=== PATIENT | female | born 1960 | race Caucasian/White ===

== ENCOUNTER → 2016-10-27 | Outpatient (CLI) | payer BC ==
[~2016-10-27] MED LIST: BNC/40 PO; LEVO75TA PO; RIZA10TA18 PO
--- NOTE | 2016-10-27 15:02 | MAMMOGRAPHY REPORT ---
BILATERAL DIGITAL SCREENING MAMMOGRAM TOMOSYNTHESIS WITH CAD: 10/27/2016 TECHNIQUE: Breast tomosynthesis in addition to standard 2D mammography was performed. Current study was also evaluated with a Computer Aided Detection (CAD) system. COMPARISON: Comparison is made to exams dated: 10/22/2015 mammogram, 08/14/2013 mammogram, 03/06/2013 m ammogram, 09/06/2014 mammogram, and 07/25/2012 mammogram - [facility]. BREAST COMPOSITION: The tissue of both breasts is heterogeneously dense, which may obscure small ma sses. FINDINGS: No suspicious masses, calcifications, or areas of architectural distortion are noted in e ither breast. There has been no significant interval change compared to prior exams. A linear scar marker denotes a scar on the left upper outer breast. There are grouped calcifications seen within the right upper outer quadrant, which demonstrate layering within a round circumscribed 4 mm mass on the MLO view, and are consistent with benign calcifications layering within a cyst. IMPRESSION: ACR BI-RADS CATEGORY 2: BENIGN There is no mammographic evidence of malignancy. A 1 year screening mammogram is recommended. The p atient will receive written notification of the results. Approximately 10% of breast cancers are not detected with mammography. A negative mammographic repor t should not delay biopsy if a clinically suggestive mass is present. Luz Cyr M.D. ah/:10/27/2016 14:17:44 Machine Molder: Palak HUANG)(Melchor), [facility] letter sent: Normal 1/2 BI-RADS Code: ACR BI-RADS Category 2: Benign
== END | disposition home or self-care (01) ==
LOC: C.MAMM 13:35
PROVIDERS: ATTEND Family Medicine
DX: Z12.31 Encounter for screening mammogram for malignant neoplasm of breast (principal)

== ENCOUNTER 2016-10-31 20:51 | Emergency (ER) | payer BC ==
[~2016-10-31] VITALS: Ht 170.2 cm; Wt 74.4 kg
[2016-10-31 20:55] VITALS: TEMP 37.1; Ht 170.2 cm; Wt 74.4 kg
[2016-10-31] MEDS ORDERED: BNC/40 PO (21:08)
[2016-10-31] MEDS ORDERED: LEVO75TA PO (21:09)
[2016-10-31] MEDS ORDERED: RIZA10TA18 PO (21:11)
[2016-10-31 21:41] LABS: BASO % 0.5 %; BASO ABS # 0.03 K/uL (0-0.2); COMPLETE YES; EOS % 2.1 %; HEMATOCRIT 38.6 % (37-47); IG% 0.2 %; LYMPH % 29.5 %; LYMPH ABS # 1.82 K/uL (1.2-3.4); MEAN CELL VOLUME 84.1 fL (80-100); MEAN CORPUSCULAR HEMOGLOBIN 29.4 pg (25-34); MEAN PLATELET VOLUME 9.7 fL (7.4-10.4); MONO % 5.5 %; NEUT % 62.2 %; PLATELET COUNT 209 K/uL (130-400); RED BLOOD COUNT 4.59 M/uL (4.2-5.4); WHITE BLOOD COUNT 6.16 K/uL (4.8-10.8)
[2016-10-31 21:52] LABS: INR 0.9 (0.9-1.1)
[2016-10-31 21:57] LABS: URINE APPEARANCE CLEAR (CLEAR); URINE BILIRUBIN NEG (NEG); URINE COLOR YELLOW; URINE NITRITE NEG (NEG); URINE PH 5.5 (4.5-7.5); URINE SPECIFIC GRAVITY 1.007 (1.000-1.030); UROBILINOGEN NEG (NEG)
[2016-10-31 21:58] LABS: ALT/SGPT 27 U/L (12-78); BLOOD UREA NITROGEN 16 mg/dl (7-18); BUN/CREATININE RATIO 16.7 (10-20); CALCIUM 9.1 mg/dl (8.5-10.1); CARBON DIOXIDE 29 mmol/L (21-32); CHLORIDE 106 mmol/L (98-107); CREATININE 0.96 mg/dl (0.60-1.20); GLUCOSE 104 mg/dl (70-99); POTASSIUM 3.5 mmol/L (3.5-5.1); SODIUM 143 mmol/L (136-145)
[2016-10-31 22:02] LABS: MANUAL MICROSCOPIC REQUIRED? NO; REVIEW REQ? NO
[2016-10-31 22:08] LABS: ALKALINE PHOSPHATASE 91 U/L (45-117); AST/SGOT 16 U/L (15-37)
--- NOTE | 2016-10-31 22:16 | DIAGNOSTIC IMAGING REPORT ---
CHEST ONE VIEW PORTABLE CLINICAL HISTORY: Severe hypertension. COMPARISON STUDY: Chest radiograph December 20, 2007. FINDINGS: Lung volumes are normal. No consolidation is identified. There is no evidence of pulmonary edema. Cardiomediastinal silhouette is normal. There is no pneumothorax or pleural effusion. IMPRESSION: No acute cardiopulmonary findings. Electronically signed by: Zeus Erwin M.D. 10/31/2016 10:15 PM Dictated Date/Time: 10/31/2016 10:14 PM
[2016-10-31 22:38] VITALS: BP 137/89; PULSE 74; O2SAT 96
--- NOTE | 2016-11-01 00:59 | EMERGENCY ROOM VISIT NOTE ---
History Report prepared by Momo: Nito Thompson Under the Supervision of: Dr. Miguel Bennett M.D. First contact with patient: 21:01 Chief Complaint: HYPERTENSION Stated Complaint: HTN 158/99, ANXIETY, DIZZY History of Present Illness The patient is a 56 year old female who presents to the Emergency Room with concerns over some recent high blood pressure readings that she took at home. The patient has a history of hypertension and was on Benicar. Benicar was discontinued and she was switched to Losartan and HTCZ. She had a reaction to the HTCZ and was then started on Olmesartan. The patient started taking the Olmesartan a couple weeks ago, at 20 mg per day. Yesterday she had her dosage doubled to 40 mg per day. The patient has been monitoring her blood pressure frequently, and admits to feeling anxiety over the readings. She also notes eating cypriot food and drinking Mountain Dew last night and this afternoon. Patient denies LOC, headache, fevers, chills, diaphoresis, visual changes, neck pain, chest pain, breathing difficulties, nausea, vomiting, abdominal pain, back pain, melena, hematochezia, urinary symptoms, numbness, weakness, lymphadenopathy, rash, or other complaints. Source of History: patient Position: other (Cardiovascular) Quality: other (Hypertensive BP) Timing: worsening Associated Symptoms: No SOB, No chest pain Review of Systems See HPI for pertinent positives and negatives. A total of ten systems were reviewed and were otherwise negative. Past Medical & Surgical Medical Problems: (1) Hypertension Surgical Problems: (1) History of cholecystectomy (2) History of partial thyroidectomy Hypertension Family History Cancer Diabetes mellitus Gallbladder disease Hypertension Social History Smoking Status: Never Smoker Drug Use: none Marital Status: Housing Status: lives with significant other Occupation Status: employed Current/Historical Medications Scheduled Levothyroxine Sodium (Synthroid), 75 MCG PO DAILY Olmesartan Medoxomil (Benicar), 40 MG PO DAILY Scheduled PRN Rizatriptan Benzoate (Maxalt), 10 MEQ PO DAILY PRN for Migraine Allergies Coded Allergies: Penicillins (Verified Allergy, Unknown, HIVES, 10/31/16) Hydrochlorothiazide (Unverified Adverse Reaction, Intermediate, itching, ) Lidocaine (Unverified Adverse Reaction, Unknown, drooping eye, 10/31/16) Uncoded Allergies: SULFA (Allergy, Unknown, RASH, 10/27/16) Physical Exam Vital Signs Date Time Temp Pulse Resp B/P Pulse Ox O2 Delivery O2 Flow Rate FiO2 10/31/16 22:38 74 16 137/89 96 Room Air 10/31/16 22:04 71 18 128/85 10/31/16 21:32 79 10/31/16 20:55 37.1 82 18 156/104 98 Room Air Physical Exam GENERAL: Awake, alert, well-appearing, in no distress HENT: Normocephalic, atraumatic. Oropharynx unremarkable. EYES: Normal conjunctiva. Sclera non-icteric. NECK: Supple. No nuchal rigidity. FROM. No JVD. RESPIRATORY: Clear to auscultation. CARDIAC: Regular rate, normal rhythm. Extremities warm and well perfused. Pulses equal. ABDOMEN: Soft, non-distended. No tenderness to palpation. No rebound or guarding. No masses. RECTAL: Deferred. MUSCULOSKELETAL: Chest examination reveals no tenderness. The back is symmetrical on inspection without obvious abnormality. There is no CVA tenderness to palpation. No joint edema. LOWER EXTREMITIES: Calves are equal size bilaterally and non-tender. No edema. No discoloration. NEURO: Normal sensorium. No sensory or motor deficits noted. SKIN: No rash or jaundice noted. Medical Decision & Procedures ER Provider Diagnostic Interpretation: X ray results as stated below per my interpretation and radiologist interpretation. Other radiology results as stated below per my review and radiologist interpretation CHEST ONE VIEW PORTABLE CLINICAL HISTORY: Severe hypertension. COMPARISON STUDY: Chest radiograph December 20, 2007. FINDINGS: Lung volumes are normal. No consolidation is identified. There is no evidence of pulmonary edema. Cardiomediastinal silhouette is normal. There is no pneumothorax or pleural effusion. IMPRESSION: No acute cardiopulmonary findings. Electronically signed by: Zeus Erwin M.D. 10/31/2016 10:15 PM Dictated Date/Time: 10/31/2016 10:14 PM Laboratory Results 10/31/16 21:25 Red Blood Count 4.59, Mean Corpuscular Volume 84.1, Mean Corpuscular Hemoglobin 29.4, Mean Corpuscular Hemoglobin Concent 35.0, Mean Platelet Volume 9.7, Neutrophils (%) (Auto) 62.2, Lymphocytes (%) (Auto) 29.5, Monocytes (%) (Auto) 5.5, Eosinophils (%) (Auto) 2.1, Basophils (%) (Auto) 0.5, Neutrophils # (Auto) 3.83, Lymphocytes # (Auto) 1.82, Monocytes # (Auto) 0.34, Eosinophils # (Auto) 0.13, Basophils # (Auto) 0.03 10/31/16 21:25 Test 10/31/16 21:20 10/31/16 21:25 Urine Color YELLOW Urine Appearance CLEAR (CLEAR) Urine pH 5.5 (4.5-7.5) Urine Specific Chandler 1.007 (1.000-1.030) Urine Protein NEG (NEG) Urine Glucose (UA) NEG (NEG) Urine Ketones NEG (NEG) Urine Occult Blood TRACE (NEG) Urine Nitrite NEG (NEG) Urine Bilirubin NEG (NEG) Urine Urobilinogen NEG (NEG) Urine Leukocyte Esterase NEG (NEG) Urine WBC (Auto) 0 /hpf (0-5) Urine RBC (Auto) 0-4 /hpf (0-4) Urine Hyaline Casts (Auto) 0 /lpf (0-5) Urine Epithelial Cells (Auto) 5-10 /lpf (0-5) Urine Bacteria (Auto) NEG (NEG) White Blood Count 6.16 K/uL (4.8-10.8) Red Blood Count 4.59 M/uL (4.2-5.4) Hemoglobin 13.5 g/dL (12.0-16.0) Hematocrit 38.6 % (37-47) Mean Corpuscular Volume 84.1 fL (80-100) Mean Corpuscular Hemoglobin 29.4 pg (25-34) Mean Corpuscular Hemoglobin Concent 35.0 g/dl (32-36) Platelet Count 209 K/uL (130-400) Mean Platelet Volume 9.7 fL (7.4-10.4) Neutrophils (%) (Auto) 62.2 % Lymphocytes (%) (Auto) 29.5 % Monocytes (%) (Auto) 5.5 % Eosinophils (%) (Auto) 2.1 % Basophils (%) (Auto) 0.5 % Neutrophils # (Auto) 3.83 K/uL (1.4-6.5) Lymphocytes # (Auto) 1.82 K/uL (1.2-3.4) Monocytes # (Auto) 0.34 K/uL (0.11-0.59) Eosinophils # (Auto) 0.13 K/uL (0-0.5) Basophils # (Auto) 0.03 K/uL (0-0.2) RDW Standard Deviation 38.7 fL (36.4-46.3) RDW Coefficient of Variation 12.7 % (11.5-14.5) Immature Granulocyte % (Auto) 0.2 % Immature Granulocyte # (Auto) 0.01 K/uL (0.00-0.02) Prothrombin Time 10.0 SECONDS (9.0-12.0) Prothromb Time International Ratio 0.9 (0.9-1.1) Activated Partial Thromboplast Time 26.3 SECONDS (21.0-31.0) Partial Thromboplastin Ratio 1.0 Anion Gap 8.0 mmol/L (3-11) Est Creatinine Clear Calc Drug Dose 68.1 ml/min Estimated GFR () 76.1 Estimated GFR (Non- 65.7 BUN/Creatinine Ratio 16.7 (10-20) Calcium Level 9.1 mg/dl (8.5-10.1) Total Bilirubin 0.3 mg/dl (0.2-1) Direct Bilirubin < 0.1 mg/dl (0-0.2) Aspartate Amino Transf (AST/SGOT) 16 U/L (15-37) Alanine Aminotransferase (ALT/SGPT) 27 U/L (12-78) Alkaline Phosphatase 91 U/L (45-117) Troponin I < 0.015 ng/ml (0-0.045) Total Protein 6.9 gm/dl (6.4-8.2) Albumin 3.5 gm/dl (3.4-5.0) Lipase 210 U/L (73-393) Thyroid Stimulating Hormone (TSH) 1.360 uIu/ml (0.300-4.500) Laboratory results reviewed by me ECG Indication: other (Hypertension) Rate (beats per minute): 76 Rhythm: normal sinus Findings: no acute ischemic change, no ectopy ED Course 2127: The patient was evaluated in room C4. A complete history and physical exam was performed. 2229: Patient was reassessed. She is asymptomatic. Her blood pressure is improved without intervention. I discussed conservative management and she was in agreement. Medical Decision Prior records/ancillary studies reviewed regarding the history above. Triage Nursing notes reviewed and agree them. Additional history obtained from the The patient's history was concerning for hypertension. Differential diagnosis: Etiologies such as hypertensive urgency, hypertensive emergency, benign hypertension, cardiovascular pathology, pheochromocytoma, electrolyte abnormality, renal disease, endorgan damage, as well as others were entertained. Physical examination: As above. ER treatment provided: No medication given On reassessment the patient felt better. Diagnostic interpretation by me: The electrocardiogram was negative for pathologic change. The labs revealed an unremarkable CBC and chemical panel. Urinalysis unremarkable. TSH and coags unremarkable. Imaging studies: Chest x-ray as above. The patient has mild hypertension. She was asymptomatic. She does note a few meals high in salt. The patient was counseled. She will follow-up closely as an outpatient. No need to change medications at this time. By the evaluation outlined above emergent etiologies such as hypertensive emergency, pheochromocytoma, endorgan damage, cardiac ischemia, aortic dissection, pulmonary embolism, pneumonia, pneumothorax, infections, gastrointestinal, as well as others were deemed relatively unlikely. The patient and were informed about the findings as listed above. All questions were answered and they were pleased with the treatment. Return instructions were outlined and the patient was discharged in stable condition. Referral: The patient was referred back to her primary care physician for follow-up in 2 to 3 days for a recheck of the current condition. The chart was completed utilizing [employer] Speech voice recognition software. Grammatical errors, random word insertions, pronoun errors, and incomplete sentences are an occasional consequence of this system due to software limitations, ambient noise, and hardware issues. Any formal questions or concerns about the content, text, or information contained within the body of this dictation should be directly addressed to the physician for clarification. Impression Primary Impression: Hypertension Scribe Attestation The scribe's documentation has been prepared under my direction and personally reviewed by me in its entirety. I confirm that the note above accurately reflects all work, treatment, procedures, and medical decision making performed by me. Departure Information Referrals Peyton Washington D.O. (PCP) Forms HOME CARE DOCUMENTATION FORM, IMPORTANT VISIT INFORMATION, WORK / SCHOOL INSTRUCTIONS Patient Instructions My [facility] Additional Instructions Follow-up with your primary office this week. Continue current medications. Avoid salty foods. Return to the ER for headache, passing out, difficulty breathing, fevers, numbness, tingling, worsening of your condition, or as needed. Problem Qualifiers Primary Impression: Hypertension Hypertension type: essential hypertension Qualified Codes: I10 - Essential ( primary) hypertension
== END 2016-10-31 22:45 | disposition home or self-care (01) ==
LOC: C.EDB 20:52 → C.EDC 22:45
DX: I10 Essential (primary) hypertension (principal); E89.0 Postprocedural hypothyroidism; Z79.899 Other long term (current) drug therapy; Z90.49 Acquired absence of other specified parts of digestive tract; Z88.0 Allergy status to penicillin; Z88.8 Allergy status to other drugs, medicaments and biological substances; Z80.9 Family history of malignant neoplasm, unspecified; Z83.3 Family history of diabetes mellitus; Z83.79 Family history of other diseases of the digestive system; Z82.49 Family history of ischemic heart disease and other diseases of the circulatory system

== ENCOUNTER → 2017-01-07 | Outpatient (CLI) | payer BC ==
--- NOTE | 2017-01-07 14:32 | DIAGNOSTIC IMAGING REPORT ---
LEFT KNEE RADIOGRAPHS WITH COMPARISON STANDING AP RADIOGRAPH OF THE RIGHT KNEE CLINICAL HISTORY: Left knee pain. COMPARISON: Knee radiographs December 15, 2012. FINDINGS: Comparison standing AP radiograph of the right knee demonstrates preserved joint spaces. Alignment of the left knee is anatomic. No fracture or suspicious lesion is identified. There may be faint chondrocalcinosis. A small left knee joint effusion is present. Joint spaces are preserved. There is mild osteophytosis within the medial and patellofemoral compartments. IMPRESSION: 1. No acute fracture. 2. Small left knee joint effusion. 3. Mild osteophytosis within the medial and patellofemoral compartments with suspected faint chondrocalcinosis. Electronically signed by: Zeus Erwin M.D. 01/07/2017 2:30 PM Dictated Date/Time: 01/07/2017 2:29 PM
== END | disposition home or self-care (01) ==
LOC: C.RDSM 13:47
PROVIDERS: ATTEND Physician Assistant
DX: M25.562 Pain in left knee (principal); M25.462 Effusion, left knee

== ENCOUNTER 2017-09-20 15:35 | Emergency (ER) | payer BC, OTHER ==
[~2017-09-20] VITALS: Ht 170.2 cm; Wt 72.9 kg
[2017-09-20 15:41] VITALS: TEMP 36.7; Ht 170.2 cm; Wt 72.9 kg
--- NOTE | 2017-09-20 16:54 | EMERGENCY ROOM VISIT NOTE ---
ED Visit Note First contact with patient: 16:39 The patient was seen and examined with the resident - Dr. Conner. I agree with the history, physical and findings. Please see the note for disposition and details.
[2017-09-20 17:02] VITALS: O2SAT 98
--- NOTE | 2017-09-20 17:10 | DIAGNOSTIC IMAGING REPORT ---
CHEST ONE VIEW PORTABLE HISTORY: 57 years-old Female CHEST PAIN acute atypical chest pain COMPARISON: Portable chest radiograph 10/31/2016 TECHNIQUE: Portable AP view of the chest FINDINGS: Cardiomediastinal and hilar silhouettes are within normal limits. There is no pneumothorax, pleural effusion, focal airspace consolidation or overt pulmonary edema. The bones of the chest appear grossly intact. IMPRESSION: No acute process. The above report was generated using voice recognition software. It may contain grammatical, syntax or spelling errors. Electronically signed by: Abel Martinez M.D. 09/20/2017 5:08 PM Dictated Date/Time: 09/20/2017 5:07 PM
[2017-09-20 17:11] LABS: BASO % 0.6 %; BASO ABS # 0.04 K/uL (0-0.2); EOS % 1.2 %; EOS ABS # 0.08 K/uL (0-0.5); HEMATOCRIT 39.4 % (37-47); HEMOGLOBIN 13.4 g/dL (12.0-16.0); IG# 0.02 K/uL (0.00-0.02); LYMPH % 24.5 %; MEAN CELL VOLUME 87.2 fL (80-100); MEAN CORPUSCULAR HEMOGLOBIN 29.6 pg (25-34); MEAN PLATELET VOLUME 9.9 fL (7.4-10.4); MONO % 4.7 %; MONO ABS # 0.31 K/uL (0.11-0.59); NEUT % 68.7 %; NEUT ABS # 4.49 K/uL (1.4-6.5); PLATELET COUNT 239 K/uL (130-400); WHITE BLOOD COUNT 6.54 K/uL (4.8-10.8)
[2017-09-20 17:22] LABS: INR 0.9 (0.9-1.1); PTT PATIENT 24.8 SECONDS (21.0-31.0)
--- NOTE | 2017-09-20 17:33 | EMERGENCY ROOM VISIT NOTE ---
History First contact with patient: 16:39 (Marta Conner MD) First contact with patient: 16:39 (Leonidas Arriaga M.D.) Chief Complaint: CHEST PAIN Stated Complaint: PAIN/CHEST PAIN LEFT SIDE Nursing Triage Summary: Patient ambulatory to triage with an upright and steady gait, states "On Tuesday , I started having pain under my left breast. It comes in waves. I went to my PCP yesterday at 1630 and they did an EKG. It was fine. I started having pain again last night and it woke me from sleep. Since 0430 this morning, I have been having these chest pains on and off. It is like a grabbing sensation in my chest. I went for blood work this morning." Patient denies any lightheadedness, dizziness, nausea or shortness of breath. (Marta Conner MD) History of Present Illness The patient is a 57 year old female who presents to the Emergency Room with complaints of intermittent chest pain which started yesterday afternoon. She stated that she had intermittent sharp pain under her left breast which was even waking her up at night. She was seen by her PCP and an EKG in the office was within normal limits. She stated that she woke up this morning at around 4:30 AM with worsening pain which comes in like a wave. There is no radiation of pain and she rates it a 3- 4/10 in severity. Denies any shortness of breath, palpitations, dizziness or lightheadedness. She has a past medical history of hypertension but denies smoking and alcohol consumption. Denies any long travels, calf tenderness or swelling. Denies using any estrogen supplements. Denies any fevers or chills, coughing, rash under her left breast. denies any family history of heart disease Quality: sharp Timing: intermittent Associated Symptoms: No fevers, No chills, No diaphoresis, No nausea, No vomiting, No abdominal pain, No diarrhea (Marta Conner MD) Review of Systems See HPI for pertinent positives & negatives. A total of 10 systems reviewed and were otherwise negative. (Marta Conner MD) Past Medical/Surgical History Medical Problems: (1) Hypertension Surgical Problems: (1) History of cholecystectomy (2) History of partial thyroidectomy (Leonidas Arriaga M.D.) h/o papillary carcinoma (Marta Conner MD) Family History Cancer Diabetes mellitus Gallbladder disease Hypertension (Marta Conner MD) Cancer Diabetes mellitus Gallbladder disease Hypertension (Leonidas Arriaga M.D.) Social History Smoking Status: Never Smoker Drug Use: none Marital Status: Housing Status: lives with significant other Occupation Status: employed (Marta Conner MD) Current/Historical Medications Scheduled Aspirin (Ecotrin Low Strength), 1 TAB PO Q2D Irbesartan (Avapro), 150 MG PO DAILY Levothyroxine Sodium (Synthroid), 75 MCG PO DAILY Scheduled PRN Rizatriptan Benzoate (Maxalt), 10 MEQ PO DAILY PRN for Migraine Physical Exam Vital Signs Date Time Temp Pulse Resp B/P (MAP) Pulse Ox O2 Delivery O2 Flow Rate FiO2 09/20/17 18:51 68 14 151/93 97 Room Air 09/20/17 17:51 65 14 147/94 97 Room Air 09/20/17 17:10 77 09/20/17 17:02 98 Room Air 09/20/17 15:41 36.7 79 20 191/108 98 Room Air (Leonidas Arriaga M.D.) Physical Exam GENERAL: Patient is in no acute distress. HEENT: No acute trauma, normocephalic atraumatic, mucous membranes moist, no nasal congestion, no scleral icterus. NECK: No stridor, no adenopathy, no meningismus, trachea is midline. LUNGS: Clear to auscultation bilaterally, no wheeze, no rhonchi, breath sounds equal. HEART: Without murmurs gallops or rubs, regular rate and rhythm. ABDOMEN: Soft, nontender, bowel sounds positive, no hernias, no peritonitis. EXTREMITIES: No cyanosis or edema, full range of motion of all the joints without pain or difficulty, no signs for acute trauma. NEUROLOGIC: Oriented x 3, no acute motor or sensory deficits, no focal weakness. SKIN: No rash, no jaundice, no diaphoresis. General Appearance: WD/WN, no apparent distress Eyes: normal inspection ENT: hearing grossly normal Neck: supple Respiratory/Chest: lungs clear, normal breath sounds, no respiratory distress, no accessory muscle use, + pertinent finding (tenderness along the 5th rib under the left breast) Cardiovascular: regular rate, rhythm Abdomen / GI: normal bowel sounds, non tender, soft Extremities: no calf tenderness, no pedal edema, normal range of motion Neurologic/Psych: no motor/sensory deficits, alert, normal mood/affect, oriented x 3 (Marta Conner MD) Medical Decision & Procedures Laboratory Results 09/20/17 16:55 Red Blood Count 4.52, Mean Corpuscular Volume 87.2, Mean Corpuscular Hemoglobin 29.6, Mean Corpuscular Hemoglobin Concent 34.0, Mean Platelet Volume 9.9, Neutrophils (%) (Auto) 68.7, Lymphocytes (%) (Auto) 24.5, Monocytes (%) (Auto) 4.7, Eosinophils (%) (Auto) 1.2, Basophils (%) (Auto) 0.6, Neutrophils # (Auto) 4.49, Lymphocytes # (Auto) 1.60, Monocytes # (Auto) 0.31, Eosinophils # (Auto) 0.08, Basophils # (Auto) 0.04 09/20/17 16:55 Test 09/20/17 16:55 White Blood Count 6.54 K/uL (4.8-10.8) Red Blood Count 4.52 M/uL (4.2-5.4) Hemoglobin 13.4 g/dL (12.0-16.0) Hematocrit 39.4 % (37-47) Mean Corpuscular Volume 87.2 fL (80-100) Mean Corpuscular Hemoglobin 29.6 pg (25-34) Mean Corpuscular Hemoglobin Concent 34.0 g/dl (32-36) Platelet Count 239 K/uL (130-400) Mean Platelet Volume 9.9 fL (7.4-10.4) Neutrophils (%) (Auto) 68.7 % Lymphocytes (%) (Auto) 24.5 % Monocytes (%) (Auto) 4.7 % Eosinophils (%) (Auto) 1.2 % Basophils (%) (Auto) 0.6 % Neutrophils # (Auto) 4.49 K/uL (1.4-6.5) Lymphocytes # (Auto) 1.60 K/uL (1.2-3.4) Monocytes # (Auto) 0.31 K/uL (0.11-0.59) Eosinophils # (Auto) 0.08 K/uL (0-0.5) Basophils # (Auto) 0.04 K/uL (0-0.2) RDW Standard Deviation 42.0 fL (36.4-46.3) RDW Coefficient of Variation 13.0 % (11.5-14.5) Immature Granulocyte % (Auto) 0.3 % Immature Granulocyte # (Auto) 0.02 K/uL (0.00-0.02) Prothrombin Time 9.6 SECONDS (9.0-12.0) Prothromb Time International Ratio 0.9 (0.9-1.1) Activated Partial Thromboplast Time 24.8 SECONDS (21.0-31.0) Partial Thromboplastin Ratio 1.0 Anion Gap 6.0 mmol/L (3-11) Est Creatinine Clear Calc Drug Dose 77.5 ml/min Estimated GFR () 98.6 Estimated GFR (Non- 85.1 BUN/Creatinine Ratio 23.0 (10-20) Calcium Level 9.3 mg/dl (8.5-10.1) Phosphorus Level 2.5 mg/dl (2.5-4.9) Magnesium Level 2.2 mg/dl (1.8-2.4) Troponin I < 0.015 ng/ml (0-0.045) Pro-B-Type Natriuretic Peptide 60 pg/ml (0-900) Laboratory results reviewed by me (Leonidas Arriaga M.D.) Medications Administered Medications (Trade) Dose Ordered Sig/Tera Route Start Time Stop Time Status Last Admin Dose Admin Ketorolac Tromethamine (Toradol Inj) 30 mg NOW STAT IV 09/20/17 18:07 09/20/17 18:12 DC 09/20/17 18:14 30 MG (Leonidas Arriaga M.D.) ECG Indication: chest pain Rate (beats per minute): 63 Rhythm: normal sinus Findings: other (no STS changes or TWI, no ectopy) (Marta Conner MD) Change: Patient's electrocardiogram interpreted by me. (Leonidas Arriaga M.D.) Medical Decision Prior records/ancillary studies reviewed. Triage Nursing notes reviewed. The patient's history was concerning for chest pain. Differential diagnosis: Etiologies such as cardiac ischemia, aortic dissection, pulmonary embolism, pneumonia, pneumothorax, musculoskeletal, infections, pericarditis, myocarditis , esophageal rupture, gastrointestinal, as well as others were entertained. Physical examination: As above. ER treatment provided: CBC, CMP, troponins, EKG, CXR were ordered On reassessment the patient felt better. Diagnostic interpretation by me: The electrocardiogram was negative for pathologic change. The labs were unremarkable Imaging studies: Chest x-ray as above The patient was informed about the findings as listed above. All questions were answered and she was pleased with the treatment. Return instructions were outlined and the patient was discharged in stable condition. Referral: The patient was referred back to his primary care physician for follow-up in 2 to 3 days for a recheck of the current condition. The patient is a 57 year old female who presents to the Emergency Room with complaints of intermittent chest pain which started yesterday afternoon. She stated that she had intermittent sharp pain under her left breast which was even waking her up at night. She was seen by her PCP and an EKG in the office was within normal limits. She was evaluated for left-sided chest pain and EKG was unchanged compared to her old EKG, chest x-ray was unremarkable and her labs were also unremarkable. It is likely her chest pain is secondary to costochondritis as she was tender to palpation along her fifth rib. PE was considered to be less likely considering her well's score was 0 , HEART score was 1 and her initial troponin was neg and she did not have other RF for ACS. she was given Toradol 30 mg IV and recommended to follow up with her PCP for outpatient testing. She was recommended to seek medical attention if she developed any rash as her pain could be sec to pre shingles neuralgia. (Marta Conner MD) Impression Primary Impression: Left sided chest pain Departure Information Referrals Peyton Washington D.OMelissa (PCP) Patient Instructions My [facility] Resident Tracking Resident Involvement: Resident Care Provided Care Provided: Adult ED (Marta Conner MD)
[2017-09-20 17:38] LABS: BLOOD UREA NITROGEN 18 mg/dl (7-18); CREATININE 0.77 mg/dl (0.60-1.20); GLUCOSE 90 mg/dl (70-99)
[2017-09-20] MEDS ORDERED: IRBE-37 PO (17:38)
[2017-09-20] MEDS ORDERED: ASPI-428 PO (17:38)
[2017-09-20 17:39] LABS: CALCIUM 9.3 mg/dl (8.5-10.1); CARBON DIOXIDE 29 mmol/L (21-32); POTASSIUM 3.8 mmol/L (3.5-5.1); SODIUM 140 mmol/L (136-145)
[2017-09-20 17:43] LABS: PHOSPHORUS 2.5 mg/dl (2.5-4.9)
[2017-09-20] MEDS ORDERED: KETOROLAC TROMETHAMINE 30 MG/ML VIAL IV STA (18:07)
[2017-09-20 18:51] VITALS: BP 151/93; PULSE 68; O2SAT 97
== END 2017-09-20 18:58 | disposition home or self-care (01) ==
LOC: C.EDB 15:36 → C.EDA 18:58
DX: R07.9 Chest pain, unspecified (principal); I10 Essential (primary) hypertension; Z80.9 Family history of malignant neoplasm, unspecified; Z83.3 Family history of diabetes mellitus; Z83.79 Family history of other diseases of the digestive system; Z82.49 Family history of ischemic heart disease and other diseases of the circulatory system; Z79.82 Long term (current) use of aspirin; Z79.899 Other long term (current) drug therapy

== ENCOUNTER → 2017-10-28 | Outpatient (CLI) | payer OTHER ==
[~2017-10-28] MED LIST changes: +ASPI-428 PO; -BNC/40 PO; +IRBE-37 PO
--- NOTE | 2017-10-31 12:43 | MAMMOGRAPHY REPORT ---
BILATERAL DIGITAL SCREENING MAMMOGRAM TOMOSYNTHESIS WITH CAD: 10/28/2017 CLINICAL HISTORY: Routine screening. Patient has no complaints. TECHNIQUE: Breast tomosynthesis in addition to standard 2D mammography was performed. Current study was also evaluated with a Computer Aided Detection (CAD) system. COMPARISON: Comparison is made to exams dated: 10/27/2016 mammogram, 10/22/2015 mammogram, 09/06/2014 m ammogram, 08/14/2013 mammogram, 03/06/2013 mammogram, and 08/03/2012 localization - [facility]. BREAST COMPOSITION: The tissue of both breasts is heterogeneously dense, which may obscure small mas ses. FINDINGS: No suspicious masses, calcifications, or areas of architectural distortion are noted in ei ther breast. There has been no significant interval change compared to prior exams. A linear scar ma rker denotes a scar on the left superior breast. IMPRESSION: ACR BI-RADS CATEGORY 2: BENIGN There is no mammographic evidence of malignancy. A 1 year screening mammogram is recommended. The pa tient will receive written notification of the results. Approximately 10% of breast cancers are not detected with mammography. A negative mammographic report should not delay biopsy if a clinically suggestive mass is present. Luz Cyr M.D. ah/:10/28/2017 13:40:18 Tool Room Supervisor: Palak APONTE(Roger)(M), [facility] letter sent: Normal 1/2 BI-RADS Code: ACR BI-RADS Category 2: Benign
== END | disposition home or self-care (01) ==
LOC: C.MAMM 09:08
PROVIDERS: ATTEND Family Medicine
DX: Z12.31 Encounter for screening mammogram for malignant neoplasm of breast (principal)

== ENCOUNTER 2025-03-31 20:16 | Observation (INO) ==
[2025-03-31] MEDS: SODIUM CHLORIDE 0.9% 1,000 ML IV ONE (22:04)
[2025-03-31 22:13] LABS: Hematocrit (blood only) 36.0 % (37.0-47.0); Hemoglobin 12.0 g/dl (12.0-16.0); Immature Granulocytes # (auto) 0.04 K/uL (0.01-0.20); Immature Granulocytes % (auto) 0.4 %; Mean Corpuscular Hemoglobin 29.1 pg (25.0-34.0); Mean Corpuscular Volume 87.2 fL (80.0-100.0); Platelet Count 249 K/uL (130-400); RDW Standard Deviation 41.4 fL (36.4-46.3); Red Blood Count 4.13 M/uL (4.20-5.40); White Blood Count 9.00 K/ul (4.8-10.8)
--- NOTE | 2025-03-31 22:21 | Emergency Department Note ---
History of Present Illness General Chief complaint: Fall Stated complaint: FELL DOWN 3 STEPS, LOWER BACK AND HIP PAIN Time Seen by Provider: 03/31/25 21:25 History of Present Illness Maximum Pain Intensity: 10 This 65-year-old female on a baby aspirin with a past medical history of hypertension and hypothyroidism presents the ER for fall down a few steps at home. Patient states she slipped and fell down a few steps in her household. She was unable to get up. She complains of severe left flank and hip pain. She does not believe she hit her head. She was unable to get up. She was given pain meds by EMS. Patient denies chest pain, dyspnea, abdominal pain, headache, numbness, tingling. Home Medications Medication Instructions Recorded Confirmed Type Lactobacillus rhamnosus GG 10 1 cap PO DAILY 11/24/22 03/31/25 History billion cell capsule (Culturelle) aspirin 81 mg tablet,delayed 81 mg PO DAILY 11/24/22 03/31/25 History release candesartan 32 mg tablet 32 mg PO DAILY 11/24/22 03/31/25 History garlic 1,000 mg capsule 1,000 mg PO DAILY 11/24/22 03/31/25 History hydralazine 10 mg tablet 20 mg PO TID 11/24/22 03/31/25 History levothyroxine 75 mcg tablet 75 mcg PO DAILY 11/24/22 03/31/25 History (Synthroid) rizatriptan 10 mg tablet 10 mg PO DIRECTED PRN Migraine 11/24/22 03/31/25 History Headache Allergies Allergy/AdvReac Type Severity Reaction Status Date / Time hydrochlorothiazide AdvReac Intermediate itching Verified 03/30/23 13:32 metronidazole [From Flagyl] AdvReac Intermediate GOT Verified 03/30/23 13:32 SICKER, OPPOSITE EFFECT. Past Med/Surg History Problem List (Updated 03/31/25 @ 23:46 by Nirmala Michaels PA-C) Fall (Acute) Closed fracture of transverse process of lumbar vertebra (Acute) Hypertension (Chronic) Left sided chest pain (Acute) Social History Smoking Status: Never smoker Preferred Language: [place]an Feels Safe at Home: Yes Review of Systems A total of 10 systems reviewed and were otherwise negative Physical Exam Vital Signs Vital Signs - 24 hr 03/31/25 20:23 03/31/25 20:31 03/31/25 21:06 Temperature 36.6 C Temperature Source Oral Pulse Rate 69 66 71 Pulse Rate from SpO2 Sensor Respiratory Rate 18 21 Respiratory Effort / Characteristics Non-Labored Spontaneous Respiratory Depth Normal Blood Pressure 137/68 130/68 Blood Pressure Mean 91 88 Pulse Oximetry 99 96 Oxygen Delivery Method Room Air Sepsis Recent Fever Within 48 Hours No Sepsis New/Unexplained Change in Mental Status No Sepsis Action Taken by Nursing No Action Required 03/31/25 22:00 03/31/25 22:48 03/31/25 23:27 Temperature Temperature Source Pulse Rate 70 74 70 Pulse Rate from SpO2 Sensor 70 Respiratory Rate 18 17 16 Respiratory Effort / Characteristics Respiratory Depth Blood Pressure 131/68 121/61 121/57 L Blood Pressure Mean 89 81 78 Pulse Oximetry 97 96 96 Oxygen Delivery Method Room Air Sepsis Recent Fever Within 48 Hours Sepsis New/Unexplained Change in Mental Status Sepsis Action Taken by Nursing 03/31/25 23:30 03/31/25 23:33 04/01/25 00:26 Temperature Temperature Source Pulse Rate 67 68 Pulse Rate from SpO2 Sensor 68 Respiratory Rate 14 Respiratory Effort / Characteristics Respiratory Depth Blood Pressure 121/57 L Blood Pressure Mean 68 Pulse Oximetry 97 Oxygen Delivery Method Sepsis Recent Fever Within 48 Hours Sepsis New/Unexplained Change in Mental Status Sepsis Action Taken by Nursing Primary Survey Airway: Intact Breathing: Normal, breath sounds equal bilaterally Circulation: Skin warm, distal pulses 2+, capillary refill less than 2 seconds Disability Pupils: Equal and reactive to light, 3mm, brisk GCS: 15, E = 4 V=5 M= 6 Motor Function: Moves all extremities. Sensory: No deficits Secondary Survey GEN: Well developed and well-nourished HENT: Head: no external signs of trauma. Eyes: EOMI. Pupils are 3 mm, round and reactive bilaterally. Ears: TMs are intact bilaterally. Neck: no midline C-spine tenderness. No step-offs. Cardiovascular: RRR. Pulses present in all 4 extremities. Pulmonary/Chest: + BS equal bilaterally. no tenderness or ecchymosis. Abdomen: no tenderness or ecchymosis. Severe left flank tenderness. Musculoskeletal: Pelvis: no instability. Back: no midline tenderness. No step-offs or deformities. Extremities: no gross deformities. non TTP. Skin: no laceration. no abrasion. Neuro: no focal neurological deficits. GCS as above. Psych: Normal mood and affect. Course Administered Medications Fentanyl Citrate (Fentanyl Citrate Pf 100 Mcg/2 Ml Vial) 50 mcg IV Q15M PRN PRN Reason: Pain Stop: 04/14/25 21:46 Last Admin: 03/31/25 22:49 Dose: 50 mcg Documented By: Admin: 03/31/25 22:04 Dose: 50 mcg Documented By: MIREYA Discontinued Medications Sodium Chloride (Nss) 1,000 mls @ 999 mls/hr IV .Q1H1M ONE Stop: 03/31/25 22:47 Last Infusion: 03/31/25 23:25 Dose: Infused Documented By: Admin: 03/31/25 22:04 Dose: 999 mls/hr Documented By: MIREYA Ioversol (Optiray 320 100ml) 93 ml IV ONCE ONE Stop: 03/31/25 23:08 Last Admin: 03/31/25 23:07 Dose: 93 ml Documented By: PETER Oxycodone HCl (Oxycodone Ir Home Pack) 1 each PO UD ONE Stop: 03/31/25 23:49 Last Admin: 04/01/25 00:43 Dose: Not Given Documented By: MIREYA Medical Decision Making Medical Records Attestation: I reviewed the patient's medical records. Home Medications Current Medication List: was personally reviewed by me Laboratory Data Attestation: I reviewed the patient's lab results. 03/31/25 21:59 03/31/25 21:59 Lab Results 03/31/25 03/31/25 Range/Units 21:59 Unknown WBC 9.00 (4.8-10.8) K/ul RBC 4.13 L (4.20-5.40) M/uL Hgb 12.0 (12.0-16.0) g/dl Hct 36.0 L (37.0-47.0) % MCV 87.2 (80.0-100.0) fL MCH 29.1 (25.0-34.0) pg MCHC 33.3 (32.0-36.0) g/dL RDW Std Deviation 41.4 (36.4-46.3) fL RDW Coeff of Yuval 13.2 (11.5-14.5) % Plt Count 249 (130-400) K/uL MPV 9.9 (9.4-12.4) fL Immature Gran % (Auto) 0.4 % Neut % (Auto) 80.1 % Lymph % (Auto) 14.6 % [place] % (Auto) 4.3 % Eos % (Auto) 0.2 % Baso % (Auto) 0.4 % Neut # (Auto) 7.20 H (1.40-6.50) K/uL Lymph # (Auto) 1.31 (1.20-3.40) K/uL [place] # (Auto) 0.39 (0.11-0.59) K/uL Eos # (Auto) 0.02 (0.00-0.50) K/uL Baso # (Auto) 0.04 (0.00-0.20) K/uL Immature Gran # (Auto) 0.04 (0.01-0.20) K/uL Sodium 139 (136-145) mmol/L Potassium 3.7 (3.5-5.1) mmol/L Chloride 109 H (98-107) mmol/L Carbon Dioxide 24 (21-32) mmol/L Anion Gap 6 (3-11) BUN 19 (6-23) mg/dl Creatinine 0.87 (0.6-1.2) mg/dl Est Cr Clr Drug Dosing 69.0 ml/min eGFR 73.43 BUN/Creatinine Ratio 21.8 H (10-20) Glucose 101 H (70-99(Fasting)) mg/dl Calcium 9.3 (8.6-10.3) mg/dl Total Bilirubin 0.4 (0.2-1.0) mg/dl AST 16 (13-39) U/L ALT 15 (7-52) U/L Alkaline Phosphatase 75 (34-104) U/L Total Creatine Kinase 132 (26-192) U/L Total Protein 6.4 (6.0-8.3) gm/dl Albumin 3.8 (3.4-5.0) gm/dl Globulin 2.6 (2.5-4.0) gm/dl Albumin/Globulin Ratio 1.5 (0.9-2) Lipase 25 (11-82) U/L Urine Color Yellow Urine Appearance Clear (Clear) Urine pH 7.5 (4.5-7.5) Ur Specific [place] 1.015 (1.000-1.030) Urine Protein Negative (Negative) Urine Glucose (UA) Negative (Negative) Urine Ketones Negative (Negative) Urine Blood Negative (Negative) Urine Nitrite Negative (Negative) Urine Bilirubin Negative (Negative) Urine Urobilinogen Negative (Negative) Ur Leukocyte Esterase Negative (Negative) Urine Comment Imaging Data Attestation: I personally reviewed and interpreted this imaging study as follows: Radiologist's Impression: Abdomen/Pelvis CT 03/31/25 21:48 Exam(s): CT ABDOMEN + PELVIS With Contrast IV Amt: OPTIRAY 320 93ML EXAM: CT Abdomen and Pelvis With Intravenous Contrast CLINICAL HISTORY: Trauma, severe left flank Pain, fall down steps. TECHNIQUE: Axial computed tomography images of the abdomen and pelvis with intravenous contrast. CTDI is 25.52 mGy and DLP is 1283.56 mGy-cm. Automated exposure control was utilized for the study. A dose lowering technique was utilized adhering to the principles of ALARA. CONTRAST: Patient received OPTIRAY 320 93ML of IV contrast COMPARISON: No relevant prior studies available. FINDINGS: Lung bases: Unremarkable. No mass. No consolidation. Mediastinum: Small hiatal hernia. ABDOMEN: Liver: Unremarkable. No mass. Gallbladder and bile ducts: Cholecystectomy. No ductal dilation. Pancreas: Unremarkable. No mass. No ductal dilation. Spleen: Unremarkable. No splenomegaly. Adrenals: Unremarkable. No mass. Kidneys and ureters: Unremarkable. No solid mass. No hydronephrosis. Stomach and bowel: Diverticulosis. No obstruction. No mucosal thickening. PELVIS: Appendix: Normal appendix. Bladder: Unremarkable. No mass. Reproductive: Unremarkable as visualized. ABDOMEN and PELVIS: Intraperitoneal space: Unremarkable. No free air. No significant fluid collection. Bones/joints: Suspect nondisplaced fracture of the left transverse process of L2. No dislocation. No other fracture. Soft tissues: Unremarkable. Vasculature: Mild atherosclerosis. No aneurysm. Lymph nodes: Unremarkable. No enlarged lymph nodes. IMPRESSION: 1. Suspect nondisplaced fracture of the left transverse process of L2. Otherwise, no acute finding. 2. Small hiatal hernia. 3. Diverticulosis. Electronically signed by: Laura Hernandez MD 03/31/25 23:[address] 03/31/25 21:48 Exam(s): CT C SPINE EXAM: CT Cervical Spine Without Intravenous Contrast CLINICAL HISTORY: Trauma. TECHNIQUE: Axial computed tomography images of the cervical spine without intravenous contrast. CTDI is 26.25 mGy and DLP is 535.13 mGy-cm. Automated exposure control was utilized for the study. A dose lowering technique was utilized adhering to the principles of ALARA. COMPARISON: No relevant prior studies available. FINDINGS: Vertebrae: Degenerative changes of the cervical spine are noted. No acute fracture. No malalignment. Discs/spinal canal/neural foramina: No acute findings. No significant spinal canal stenosis. Soft tissues: Unremarkable. IMPRESSION: No acute finding of the cervical spine. Electronically signed by: Laura Hernandez MD 03/31/25 23:[address] 03/31/25 21:48 Exam(s): CT CHEST With Contrast IV Amt: OPTIRAY 320 93ML EXAM: CT Chest With Intravenous Contrast CLINICAL HISTORY: Trauma. TECHNIQUE: Axial computed tomography images of the chest with intravenous contrast. CTDI is 22.44 mGy and DLP is 747.15 mGy-cm. Automated exposure control was utilized for the study. A dose lowering technique was utilized adhering to the principles of ALARA. CONTRAST: Patient received OPTIRAY 320 93ML of IV contrast COMPARISON: No relevant prior studies available. FINDINGS: Lungs: Mild interseptal prominence raises concern for pulmonary edema. No consolidation. Pleural space: Unremarkable. No significant effusion. No pneumothorax. Heart: Dense coronary artery calcifications are present. No cardiomegaly. No significant pericardial effusion. Mediastinum: Small hiatal hernia. Bones/joints: Unremarkable. No acute fracture. Soft tissues: Unremarkable. Vasculature: No significant atherosclerosis. No aneurysm. Lymph nodes: Unremarkable. No enlarged lymph nodes. IMPRESSION: 1. No acute finding of the chest. 2. Mild interseptal prominence raises concern for pulmonary edema. 3. Small hiatal hernia. 4. Dense coronary artery calcifications are present. Consider cardiology referral. Electronically signed by: Laura Hernandez MD 03/31/25 23:[address] 03/31/25 21:48 Exam(s): CT HEAD Without Contrast EXAM: CT Head Without Intravenous Contrast CLINICAL HISTORY: Trauma. TECHNIQUE: Axial computed tomography images of the head/brain without intravenous contrast. CTDI is 35.37 mGy and DLP is 546.36 mGy-cm. Automated exposure control was utilized for the study. A dose lowering technique was utilized adhering to the principles of ALARA. COMPARISON: No relevant prior studies available. FINDINGS: Brain: No intracranial hemorrhage, mass-effect or midline shift. No abnormal extra axial fluid. No evidence of acute infarct. Mild periventricular white matter hypodensities are most consistent with chronic microangiopathy. Ventricles: Unremarkable. No ventriculomegaly. Bones/joints: Unremarkable. No acute fracture. Soft tissues: Unremarkable. Sinuses: Unremarkable as visualized. No acute sinusitis. Mastoid air cells: Unremarkable as visualized. No mastoid effusion. IMPRESSION: No acute intracranial finding. Electronically signed by: Laura Hernandez MD 03/31/25 23:32 PM MDM Narrative Prior records/ancillary studies reviewed. Triage Nursing notes reviewed. Additional history obtained from family. Patient was seen and evaluated by myself at 2140. The patient's history was concerning for traumatic injury Differential diagnosis: Etiologies such as fracture, dislocation, intra-abdominal, pneumothorax, intrathoracic , intracranial, neurologic, as well as other traumatic pathologies were entertained. Physical examination findings: As above. The patients vitals were stable. ER treatment provided: IV Normal Saline hydration, fentanyl was ordered An order was placed for continuous cardiac monitoring. The monitor shows a rate of 60-100 with a sinus rhythm per my interpretation. On reassessment the patient felt better. Vital signs were stable. Diagnostic interpretation by me: The labs Independently Interpreted by myself revealed negative urine No worrisome leukocytosis, stable H&H Glucose 101 Imaging studies: Imaging was reviewed and read by radiology Consultation: A consultation was placed with hospitalist. The case was discussed and diagnostics were reviewed. The patient was evaluated for admission. This appears to be consistent with left transverse process of L2. Patient was neurovascularly and neurologically intact. No other injuries noted on sandoval scan. Patient was in too much pain to go home. She is requesting admission. I felt this is reasonable. Medicine was consulted and case discussed. She will be evaluated for admission. By the evaluation outlined above emergent etiologies such as dislocation, intra-abdominal, pneumothorax, pulmonary contusion, hemothorax, intracranial, neurologic,as well as others were deemed relatively unlikely. The pt informed about the findings as listed above. All questions were answered and pleased with the treatment. The chart was completed utilizing [employer] voice recognition software. Grammatical errors, random word insertions, pronoun errors, and incomplete sentences are an occassional consequence of this system due to software limitations, ambient noise, and hardware issues. Any formal questions or concerns about the content, text, or information contained within the body of this dictation should be directly addressed to the physician clinical medical assistant for clarification. Impression & Plan Closed fracture of transverse process of lumbar vertebra, Fall Discharge Plan Visit Data Chief Complaint: Fall Stated Complaint: FELL DOWN 3 STEPS, LOWER BACK AND HIP PAIN ED Provider: Abdiaziz Rosario ED Midlevel Provider: Nirmala Michaels Discharge Problem: Closed fracture of transverse process of lumbar vertebra, Fall Patient Disposition: Admitted As Inpatient Condition: Good Discharge Instructions Krames/Other Patient Handouts: ED [facility] Back Pain Activity Restrictions/Additional Instructions: DO NOT drive, drink alcohol, operate machinery, or perform dangerous activities today. You were given medications in the ER that can affect your ability to safely function or operate a vehicle. No lifting greater than 10 pounds until cleared by orthopedic spine. Oxycodone (OxyIR) 5mg: Take 1 pill every four hours for breakthrough pain. Avoid alcohol, operating machinery or dangerous equipment, working on ladders or roofs, DRIVING, or situations where being under the influence may be dangerous. It is recommended to use an [id number] stool softener such as Colace, 100mg twice daily while taking this medication to avoid constipation. Recommend yoga and/or Pilates for back pain to help strengthen up your core. Recommend physical therapy to help strengthen up your core. Recommend a healthy weight. Ibuprofen(Motrin, Advil) may be used for fever or pain. Use 400mg every six hours as needed. Take with food. Avoid using more than 1600mg in a 24 hour period. Do not use 1600mg per day for more than three consecutive days without physician direction. Prolonged inappropriate use can lead to stomach upset or ulcers. This medication can be taken if you need to drive, work, or perform activities which may be dangerous when taking narcotic pain medication. (AND/OR) Acetaminophen(Tylenol) may be used for fever or pain. Use 1000mg every six hours as needed. Avoid using more than 3000mg in a 24 hour period. This medication can be taken if you need to drive, work, or perform activities which may be dangerous when taking narcotic pain medication. Rest and avoid heavy lifting until your symptoms resolve and then gradually return to full activity. A good rule of thumb is if it hurts your back to perform a certain activity, then it should be avoided until you are healthy again. A heating pad, warm compresses, or a hot shower may help with tight muscles and can be done several times a day as needed. Continue current medications. Return to the ER immediately for any numbness, tingling, severe pain, loss of control of your bowels or bladder, inability to walk, or as needed. Follow up with your primary care physician/orthopedics spine within 3-5 days for a recheck of your current condition. Forms Stand Alone Forms: Important Visit Information Prescriptions Prescriptions: No Action hydralazine 10 mg tablet 20 mg PO TID rizatriptan 10 mg Tablet 10 mg PO DIRECTED PRN (Reason: Migraine Headache) Rx Instructions: take 1 tab at onset of headache; if no relief may repeat 1 tab after at least 2 hrs; max = 3 tabs/24 hr aspirin 81 mg Tablet,Delayed Release (Dr/Ec) 81 mg PO DAILY levothyroxine [Synthroid] 75 mcg tablet 75 mcg PO DAILY garlic 1,000 mg Capsule 1,000 mg PO DAILY candesartan 32 mg tablet 32 mg PO DAILY Culturelle 10 billion cell Capsule 1 cap PO DAILY Referrals Referrals: Peyton Washington DO [Primary Care Provider] - Abdiaziz Canas MD [Surgeon] - Discharge Problem: Closed fracture of transverse process of lumbar vertebra Qualifiers: Encounter type: initial encounter Qualified Code(s): S32.009A - Unspecified fracture of unspecified lumbar vertebra, initial encounter for closed fracture
[2025-03-31 22:29] LABS: Alanine Aminotransferase 15.0 U/L (7-52); Albumin Globulin Ratio 1.5 (0.9-2); Alkaline Phosphatase 75.0 U/L (34-104); Anion Gap 6.0 (3-11); Bilirubin,Total 0.4 mg/dl (0.2-1.0); Blood Urea Nitrogen 19.0 mg/dl (6-23); Calcium 9.3 mg/dl (8.6-10.3); Carbon Dioxide 24.0 mmol/L (21-32); Chloride 109.0 mmol/L (98-107); Creatine Kinase 132.0 U/L (26-192); Creatinine Clr Calc Pharmacy 69.0 ml/min; Globulin 2.6 gm/dl (2.5-4.0); Glucose 101.0 mg/dl (70-99(Fasting)); Lipase 25.0 U/L (11-82); Potassium 3.7 mmol/L (3.5-5.1); Sodium 139.0 mmol/L (136-145); Total Protein 6.4 gm/dl (6.0-8.3)
[2025-03-31] MEDS: OPTIRAY 320 100ml IV ONE (23:07)
[2025-03-31 23:27] LABS: Appearance Urine Clear (Clear); Glucose Urine UA Negative (Negative)
--- NOTE | 2025-03-31 23:33 | CT Scan Report ---
Exam(s): CT HEAD Without Contrast EXAM: CT Head Without Intravenous Contrast CLINICAL HISTORY: Trauma. TECHNIQUE: Axial computed tomography images of the head/brain without intravenous contrast. CTDI is 35.37 mGy and DLP is 546.36 mGy-cm. Automated exposure control was utilized for the study. A dose lowering technique was utilized adhering to the principles of ALARA. COMPARISON: No relevant prior studies available. FINDINGS: Brain: No intracranial hemorrhage, mass-effect or midline shift. No abnormal extra axial fluid. No evidence of acute infarct. Mild periventricular white matter hypodensities are most consistent with chronic microangiopathy. Ventricles: Unremarkable. No ventriculomegaly. Bones/joints: Unremarkable. No acute fracture. Soft tissues: Unremarkable. Sinuses: Unremarkable as visualized. No acute sinusitis. Mastoid air cells: Unremarkable as visualized. No mastoid effusion. IMPRESSION: No acute intracranial finding. Electronically signed by: Laura Hernandez MD 03/31/25 23:32 PM
--- NOTE | 2025-03-31 23:33 | CT Scan Report ---
Exam(s): CT C SPINE EXAM: CT Cervical Spine Without Intravenous Contrast CLINICAL HISTORY: Trauma. TECHNIQUE: Axial computed tomography images of the cervical spine without intravenous contrast. CTDI is 26.25 mGy and DLP is 535.13 mGy-cm. Automated exposure control was utilized for the study. A dose lowering technique was utilized adhering to the principles of ALARA. COMPARISON: No relevant prior studies available. FINDINGS: Vertebrae: Degenerative changes of the cervical spine are noted. No acute fracture. No malalignment. Discs/spinal canal/neural foramina: No acute findings. No significant spinal canal stenosis. Soft tissues: Unremarkable. IMPRESSION: No acute finding of the cervical spine. Electronically signed by: Laura Hernandez MD 03/31/25 23:32 PM
--- NOTE | 2025-03-31 23:35 | CT Scan Report ---
Exam(s): CT CHEST With Contrast IV Amt: OPTIRAY 320 93ML EXAM: CT Chest With Intravenous Contrast CLINICAL HISTORY: Trauma. TECHNIQUE: Axial computed tomography images of the chest with intravenous contrast. CTDI is 22.44 mGy and DLP is 747.15 mGy-cm. Automated exposure control was utilized for the study. A dose lowering technique was utilized adhering to the principles of ALARA. CONTRAST: Patient received OPTIRAY 320 93ML of IV contrast COMPARISON: No relevant prior studies available. FINDINGS: Lungs: Mild interseptal prominence raises concern for pulmonary edema. No consolidation. Pleural space: Unremarkable. No significant effusion. No pneumothorax. Heart: Dense coronary artery calcifications are present. No cardiomegaly. No significant pericardial effusion. Mediastinum: Small hiatal hernia. Bones/joints: Unremarkable. No acute fracture. Soft tissues: Unremarkable. Vasculature: No significant atherosclerosis. No aneurysm. Lymph nodes: Unremarkable. No enlarged lymph nodes. IMPRESSION: 1. No acute finding of the chest. 2. Mild interseptal prominence raises concern for pulmonary edema. 3. Small hiatal hernia. 4. Dense coronary artery calcifications are present. Consider cardiology referral. Electronically signed by: Laura eHrnandez MD 03/31/25 23:34 PM
--- NOTE | 2025-03-31 23:35 | Emergency Department Note ---
ED Visit Note I was consulted by the Advanced Practice Provider. I personally made/approved the management plan and take responsibility for the patient management. I performed a substantive portion of the visit. This includes the aspects of: [-I independently interpreted the following studies:][Chest x-ray was a poor study although, I did not see any obvious rib injury or pneumothorax.] Patient presents after falling. She is not on blood thinning agents. She does have a left lumbar transverse process fracture. Luckily, no injury to the head, chest, cervical spine. Patient though is quite uncomfortable and is going to require a hospital stay for pain management. The on-call hospitalist was consulted. .
--- NOTE | 2025-03-31 23:37 | CT Scan Report ---
Exam(s): CT ABDOMEN + PELVIS With Contrast IV Amt: OPTIRAY 320 93ML EXAM: CT Abdomen and Pelvis With Intravenous Contrast CLINICAL HISTORY: Trauma, severe left flank Pain, fall down steps. TECHNIQUE: Axial computed tomography images of the abdomen and pelvis with intravenous contrast. CTDI is 25.52 mGy and DLP is 1283.56 mGy-cm. Automated exposure control was utilized for the study. A dose lowering technique was utilized adhering to the principles of ALARA. CONTRAST: Patient received OPTIRAY 320 93ML of IV contrast COMPARISON: No relevant prior studies available. FINDINGS: Lung bases: Unremarkable. No mass. No consolidation. Mediastinum: Small hiatal hernia. ABDOMEN: Liver: Unremarkable. No mass. Gallbladder and bile ducts: Cholecystectomy. No ductal dilation. Pancreas: Unremarkable. No mass. No ductal dilation. Spleen: Unremarkable. No splenomegaly. Adrenals: Unremarkable. No mass. Kidneys and ureters: Unremarkable. No solid mass. No hydronephrosis. Stomach and bowel: Diverticulosis. No obstruction. No mucosal thickening. PELVIS: Appendix: Normal appendix. Bladder: Unremarkable. No mass. Reproductive: Unremarkable as visualized. ABDOMEN and PELVIS: Intraperitoneal space: Unremarkable. No free air. No significant fluid collection. Bones/joints: Suspect nondisplaced fracture of the left transverse process of L2. No dislocation. No other fracture. Soft tissues: Unremarkable. Vasculature: Mild atherosclerosis. No aneurysm. Lymph nodes: Unremarkable. No enlarged lymph nodes. IMPRESSION: 1. Suspect nondisplaced fracture of the left transverse process of L2. Otherwise, no acute finding. 2. Small hiatal hernia. 3. Diverticulosis. Electronically signed by: Laura Hernandez MD 03/31/25 23:36 PM
--- NOTE | 2025-04-01 00:57 | History & Physical Report ---
Date of Service April 01, 2025 Assessment & Plan (1) Closed fracture of transverse process of lumbar vertebra: (2) Hypertension: (3) Fall: (4) Hypothyroidism (acquired): Plan The patient is a 65-year-old female with past medical history including hypertension, hypothyroidism, and migraine headache. The patient presents to the emergency department with complaint of severe left flank and hip pain, after she fell down her basement steps as she was carrying a load of laundry. Imaging in the emergency department including a normal CT of head, CT cervical spine, CT of chest. CT scan of abdomen pelvis revealed a nondisplaced L2 transverse process fracture. Due to intractable pain, patient was referred for evaluation for admission to the [facility] service. Closed fracture of transverse process of lumbar vertebrae L2 status post fall- Patient had been given fentanyl 50 mcg IV, with mild improvement in pain Admit to medical surgical floor Acetaminophen 650 mg p.o. every 6 hours as needed for mild pain or fever Celebrex 100 mg p.o. twice daily Tramadol 50 mg p.o. every 4 hours as needed moderate pain Dexamethasone 6 mg IV now, and every morning Lidoderm patch applied to nail, and every morning Hypertension- Continue aspirin, candesartan, hydralazine Hypothyroidism- Continue levothyroxine Migraine headache- Continue rizatriptan as needed History of Present Illness Chief Complaint: The patient presents to the emergency department with complaint of severe left flank and hip pain, after she fell down her basement steps as she was carrying a load of laundry. Imaging in the emergency department including a normal CT of head, CT cervical spine, CT of chest. CT scan of abdomen pelvis revealed a nondisplaced L2 transverse process fracture. Due to intractable pain, patient was referred for evaluation for admission to the [facility] service. Primary Care Provider: Peyton Washington DO The patient is a 65-year-old female with past medical history including hypertension, hypothyroidism, and migraine headache. The patient presents to the emergency department with complaint of severe left flank and hip pain, after she fell down her basement steps as she was carrying a load of laundry. Imaging in the emergency department including a normal CT of head, CT cervical spine, CT of chest. CT scan of abdomen pelvis revealed a nondisplaced L2 transverse process fracture. Due to intractable pain, patient was referred for evaluation for admission to the [facility] hospitalist service. Allergies Allergy/AdvReac Type Severity Reaction Status Date / Time hydrochlorothiazide AdvReac Intermediate itching Verified 03/30/23 13:32 metronidazole [From Flagyl] AdvReac Intermediate GOT Verified 03/30/23 13:32 SICKER, OPPOSITE EFFECT. Home Medications Medication Instructions Recorded Confirmed Type Lactobacillus rhamnosus GG 10 1 cap PO DAILY 11/24/22 03/31/25 History billion cell capsule (Culturelle) aspirin 81 mg tablet,delayed 81 mg PO DAILY 11/24/22 03/31/25 History release candesartan 32 mg tablet 32 mg PO DAILY 11/24/22 03/31/25 History garlic 1,000 mg capsule 1,000 mg PO DAILY 11/24/22 03/31/25 History hydralazine 10 mg tablet 20 mg PO TID 11/24/22 03/31/25 History levothyroxine 75 mcg tablet 75 mcg PO DAILY 11/24/22 03/31/25 History (Synthroid) rizatriptan 10 mg tablet 10 mg PO DIRECTED PRN Migraine 11/24/22 03/31/25 History Headache Past Med/Surg History Problem List (Updated 04/01/25 @ 01:03 by Christiano Olivera MD) Hypothyroidism (acquired) Fall (Acute) Closed fracture of transverse process of lumbar vertebra (Acute) Hypertension (Chronic) Left sided chest pain (Acute) Social History Smoking Status: Never smoker Preferred Language: Gabonese Feels Safe at Home: Yes Review of Systems Review of Systems: The patient denies chest pain, palpitations, shortness of breath, dyspnea on exertion, cough, lower extremity swelling, sore throat, fevers, chills, sweats, weight change, fatigue, nausea, vomiting, diarrhea , constipation, abdominal pain, blood in urine or stool, dysuria, urinary frequency or urgency, lightheadedness, dizziness, headache, memory loss, loss of consciousness, rash, abnormal bruising or bleeding, imbalance, focal or generalized weakness, numbness or tingling in arms, generalized arthralgias or myalgias, neck pain, or night sweats. The review of systems is otherwise negative other than for that already noted above, and at least 10 systems have been reviewed. Physical Exam Physical Exam: The patient is awake, alert and oriented 3, well developed and well nourished, normocephalic and atraumatic, lying in bed and in no acute distress. HEENT--PERRL, EOMI, mucous membranes and oropharynx mildly dry Neck--supple. No JVD. No bruits. Thyroid normal, trachea midline, no adenopathy. Heart--normal S1 and S2. No murmurs, rubs or gallops. Lungs--clear bilaterally, no respiratory distress, no accessory muscle use. Abdomen--normal bowel sounds and soft. Nontender. Nondistended, no hernias or masses, no organomegaly. Extremities--no cyanosis or clubbing. No edema. There are good distal pulses b/l. Dermatologic--normal skin turgor, normal color, no abnormal lymph nodes, no rash. Neurologic--cranial nerves II through XII grossly intact. Rheumatologic--mild to moderate pain reproducible over L2 Psychiatric--normal affect. Results & Data Results & Data Vital Signs (Past 12 Hours) Vital Signs Temp Pulse Resp BP Pulse Ox O2 Del Method 04/01/25 00:26 68 03/31/25 23:33 67 14 97 03/31/25 23:30 121/57 L 03/31/25 23:27 70 16 121/57 L 96 Room Air 03/31/25 22:48 74 17 121/61 96 03/31/25 22:00 70 18 131/68 97 03/31/25 21:06 71 21 130/68 96 03/31/25 20:31 36.6 C 66 18 137/68 99 Room Air 03/31/25 20:23 69 Laboratory Results Laboratory Results WBC 9.00 K/ul (4.8-10.8) 03/31/25 21:59 RBC 4.13 M/uL (4.20-5.40) L 03/31/25 21:59 Hgb 12.0 g/dl (12.0-16.0) 03/31/25 21:59 Hct 36.0 % (37.0-47.0) L 03/31/25 21:59 MCV 87.2 fL (80.0-100.0) 03/31/25 21:59 MCH 29.1 pg (25.0-34.0) 03/31/25 21:59 MCHC 33.3 g/dL (32.0-36.0) 03/31/25 21:59 RDW Std Deviation 41.4 fL (36.4-46.3) 03/31/25 21:59 RDW Coeff of Yuval 13.2 % (11.5-14.5) 03/31/25 21:59 Plt Count 249 K/uL (130-400) 03/31/25 21:59 MPV 9.9 fL (9.4-12.4) 03/31/25 21:59 Immature Gran % (Auto) 0.4 % 03/31/25 21:59 Neut % (Auto) 80.1 % 03/31/25 21:59 Lymph % (Auto) 14.6 % 03/31/25 21:59 Bland % (Auto) 4.3 % 03/31/25 21:59 Eos % (Auto) 0.2 % 03/31/25 21:59 Baso % (Auto) 0.4 % 03/31/25 21:59 Neut # (Auto) 7.20 K/uL (1.40-6.50) H 03/31/25 21:59 Lymph # (Auto) 1.31 K/uL (1.20-3.40) 03/31/25 21:59 Bland # (Auto) 0.39 K/uL (0.11-0.59) 03/31/25 21:59 Eos # (Auto) 0.02 K/uL (0.00-0.50) 03/31/25 21:59 Baso # (Auto) 0.04 K/uL (0.00-0.20) 03/31/25 21:59 Immature Gran # (Auto) 0.04 K/uL (0.01-0.20) 03/31/25 21:59 Sodium 139 mmol/L (136-145) 03/31/25 21:59 Potassium 3.7 mmol/L (3.5-5.1) 03/31/25 21:59 Chloride 109 mmol/L (98-107) H 03/31/25 21:59 Carbon Dioxide 24 mmol/L (21-32) 03/31/25 21:59 Anion Gap 6 (3-11) 03/31/25 21:59 BUN 19 mg/dl (6-23) 03/31/25 21:59 Creatinine 0.87 mg/dl (0.6-1.2) 03/31/25 21:59 Est Cr Clr Drug Dosing 69.0 ml/min 03/31/25 21:59 eGFR 73.43 03/31/25 21:59 BUN/Creatinine Ratio 21.8 (10-20) H 03/31/25 21:59 Glucose 101 mg/dl (70-99(Fasting)) H 03/31/25 21:59 Calcium 9.3 mg/dl (8.6-10.3) 03/31/25 21:59 Total Bilirubin 0.4 mg/dl (0.2-1.0) 03/31/25 21:59 AST 16 U/L (13-39) 03/31/25 21:59 ALT 15 U/L (7-52) 03/31/25 21:59 Alkaline Phosphatase 75 U/L (34-104) 03/31/25 21:59 Total Creatine Kinase 132 U/L (26-192) 03/31/25 21:59 Total Protein 6.4 gm/dl (6.0-8.3) 03/31/25 21:59 Albumin 3.8 gm/dl (3.4-5.0) 03/31/25 21:59 Globulin 2.6 gm/dl (2.5-4.0) 03/31/25 21:59 Albumin/Globulin Ratio 1.5 (0.9-2) 03/31/25 21:59 Lipase 25 U/L (11-82) 03/31/25 21:59 Urine Color Yellow 03/31/25 Unknown Urine Appearance Clear (Clear) 03/31/25 Unknown Urine pH 7.5 (4.5-7.5) 03/31/25 Unknown Ur Specific Kendall 1.015 (1.000-1.030) 03/31/25 Unknown Urine Protein Negative (Negative) 03/31/25 Unknown Urine Glucose (UA) Negative (Negative) 03/31/25 Unknown Urine Ketones Negative (Negative) 03/31/25 Unknown Urine Blood Negative (Negative) 03/31/25 Unknown Urine Nitrite Negative (Negative) 03/31/25 Unknown Urine Bilirubin Negative (Negative) 03/31/25 Unknown Urine Urobilinogen Negative (Negative) 03/31/25 Unknown Ur Leukocyte Esterase Negative (Negative) 03/31/25 Unknown Urine Comment 03/31/25 Unknown Impressions Abdomen/Pelvis CT 03/31/25 21:48 Exam(s): CT ABDOMEN + PELVIS With Contrast IV Amt: OPTIRAY 320 93ML EXAM: CT Abdomen and Pelvis With Intravenous Contrast CLINICAL HISTORY: Trauma, severe left flank Pain, fall down steps. TECHNIQUE: Axial computed tomography images of the abdomen and pelvis with intravenous contrast. CTDI is 25.52 mGy and DLP is 1283.56 mGy-cm. Automated exposure control was utilized for the study. A dose lowering technique was utilized adhering to the principles of ALARA. CONTRAST: Patient received OPTIRAY 320 93ML of IV contrast COMPARISON: No relevant prior studies available. FINDINGS: Lung bases: Unremarkable. No mass. No consolidation. Mediastinum: Small hiatal hernia. ABDOMEN: Liver: Unremarkable. No mass. Gallbladder and bile ducts: Cholecystectomy. No ductal dilation. Pancreas: Unremarkable. No mass. No ductal dilation. Spleen: Unremarkable. No splenomegaly. Adrenals: Unremarkable. No mass. Kidneys and ureters: Unremarkable. No solid mass. No hydronephrosis. Stomach and bowel: Diverticulosis. No obstruction. No mucosal thickening. PELVIS: Appendix: Normal appendix. Bladder: Unremarkable. No mass. Reproductive: Unremarkable as visualized. ABDOMEN and PELVIS: Intraperitoneal space: Unremarkable. No free air. No significant fluid collection. Bones/joints: Suspect nondisplaced fracture of the left transverse process of L2. No dislocation. No other fracture. Soft tissues: Unremarkable. Vasculature: Mild atherosclerosis. No aneurysm. Lymph nodes: Unremarkable. No enlarged lymph nodes. IMPRESSION: 1. Suspect nondisplaced fracture of the left transverse process of L2. Otherwise, no acute finding. 2. Small hiatal hernia. 3. Diverticulosis. Electronically signed by: Laura Hernandez MD 03/31/25 23:[address] 03/31/25 21:48 Exam(s): CT C SPINE EXAM: CT Cervical Spine Without Intravenous Contrast CLINICAL HISTORY: Trauma. TECHNIQUE: Axial computed tomography images of the cervical spine without intravenous contrast. CTDI is 26.25 mGy and DLP is 535.13 mGy-cm. Automated exposure control was utilized for the study. A dose lowering technique was utilized adhering to the principles of ALARA. COMPARISON: No relevant prior studies available. FINDINGS: Vertebrae: Degenerative changes of the cervical spine are noted. No acute fracture. No malalignment. Discs/spinal canal/neural foramina: No acute findings. No significant spinal canal stenosis. Soft tissues: Unremarkable. IMPRESSION: No acute finding of the cervical spine. Electronically signed by: Laura Hernandez MD 03/31/25 23:[address] 03/31/25 21:48 Exam(s): CT CHEST With Contrast IV Amt: OPTIRAY 320 93ML EXAM: CT Chest With Intravenous Contrast CLINICAL HISTORY: Trauma. TECHNIQUE: Axial computed tomography images of the chest with intravenous contrast. CTDI is 22.44 mGy and DLP is 747.15 mGy-cm. Automated exposure control was utilized for the study. A dose lowering technique was utilized adhering to the principles of ALARA. CONTRAST: Patient received OPTIRAY 320 93ML of IV contrast COMPARISON: No relevant prior studies available. FINDINGS: Lungs: Mild interseptal prominence raises concern for pulmonary edema. No consolidation. Pleural space: Unremarkable. No significant effusion. No pneumothorax. Heart: Dense coronary artery calcifications are present. No cardiomegaly. No significant pericardial effusion. Mediastinum: Small hiatal hernia. Bones/joints: Unremarkable. No acute fracture. Soft tissues: Unremarkable. Vasculature: No significant atherosclerosis. No aneurysm. Lymph nodes: Unremarkable. No enlarged lymph nodes. IMPRESSION: 1. No acute finding of the chest. 2. Mild interseptal prominence raises concern for pulmonary edema. 3. Small hiatal hernia. 4. Dense coronary artery calcifications are present. Consider cardiology referral. Electronically signed by: Laura Hernandez MD 03/31/25 23:[address] 03/31/25 21:48 Exam(s): CT HEAD Without Contrast EXAM: CT Head Without Intravenous Contrast CLINICAL HISTORY: Trauma. TECHNIQUE: Axial computed tomography images of the head/brain without intravenous contrast. CTDI is 35.37 mGy and DLP is 546.36 mGy-cm. Automated exposure control was utilized for the study. A dose lowering technique was utilized adhering to the principles of ALARA. COMPARISON: No relevant prior studies available. FINDINGS: Brain: No intracranial hemorrhage, mass-effect or midline shift. No abnormal extra axial fluid. No evidence of acute infarct. Mild periventricular white matter hypodensities are most consistent with chronic microangiopathy. Ventricles: Unremarkable. No ventriculomegaly. Bones/joints: Unremarkable. No acute fracture. Soft tissues: Unremarkable. Sinuses: Unremarkable as visualized. No acute sinusitis. Mastoid air cells: Unremarkable as visualized. No mastoid effusion. IMPRESSION: No acute intracranial finding. Electronically signed by: Laura Hernandez MD 03/31/25 23:32 PM Chest X-Ray 03/31/25 23:35 EXAM: XR chest 1V portable CLINICAL HISTORY: Fall. TECHNIQUE: An X-ray image of the chest was obtained in PA prone projection. COMPARISON: 09/20/2017 CR FINDINGS: Pulmonary Parenchyma: The lungs are clear bilaterally. There is no evidence of consolidation, collapse, or focal opacities. No pulmonary nodules are identified. There is no evidence of pleural effusion or pleural thickening. Heart and Mediastinum: The heart size and shape are normal. There is no mediastinal widening or masses. No hilar or mediastinal lymphadenopathy. Bony Thorax: The bony thorax appears intact, without fractures or deformities. Soft Tissues: The soft tissues overlying the chest wall are unremarkable. IMPRESSION: 1. No acute cardiopulmonary abnormalities are identified. 2. There are no gross interval changes. Electronically signed by Yo Almendarez 04-01-2025 01:01 AM Code Status & VTE Plan Code Status Full code PG Care Time/CCT Total # of Minutes Spent Total Time Spent with Patient: Total time spent is greater than 50% in coordination of care (as documented) at patient's floor/unit and/or counseling patient: Coding Level of Care Code 32141 INT INP/OBS CARE 3/75MIN Diagnoses Closed fracture of transverse process of lumbar vertebra S32.009A Encounter type: initial encounter Hypertension I10 Fall W19.XXXA Hypothyroidism (acquired) E03.9 (1) Closed fracture of transverse process of lumbar vertebra Encounter type: initial encounter Qualified Code(s): S32.009A - Unspecified fracture of unspecified lumbar vertebra, initial encounter for closed fracture
--- NOTE | 2025-04-01 01:01 | XRay Report ---
EXAM: XR chest 1V portable CLINICAL HISTORY: Fall. TECHNIQUE: An X-ray image of the chest was obtained in PA prone projection. COMPARISON: 09/20/2017 CR FINDINGS: Pulmonary Parenchyma: The lungs are clear bilaterally. There is no evidence of consolidation, collapse, or focal opacities. No pulmonary nodules are identified. There is no evidence of pleural effusion or pleural thickening. Heart and Mediastinum: The heart size and shape are normal. There is no mediastinal widening or masses. No hilar or mediastinal lymphadenopathy. Bony Thorax: The bony thorax appears intact, without fractures or deformities. Soft Tissues: The soft tissues overlying the chest wall are unremarkable. IMPRESSION: 1. No acute cardiopulmonary abnormalities are identified. 2. There are no gross interval changes. Electronically signed by Yo Almendarez 04-01-2025 01:01 AM
[2025-04-01] MEDS: LIDOCAINE 5% 1 PATCH TD STA (01:23)
[2025-04-01] MEDS: DEXAMETHASONE SOD INJ 4 MG/ML VIAL IV STA (01:23)
[2025-04-01] MEDS ORDERED: RIZATRIPTAN BENZOATE 10 MG TAB PO PRN (02:59)
[2025-04-01] MEDS ORDERED: ONDANSETRON INJ 2 MG/ML 2 ML VIAL IV PRN (02:59)
[2025-04-01] MEDS: CELECOXIB 100 MG CAP PO SCH (03:44)
[2025-04-01] MEDS: LEVOTHYROXINE SODIUM 75 MCG TABLET PO SCH (05:47)
[2025-04-01] MEDS: ACETAMINOPHEN 325 MG TAB PO PRN (07:26)
[2025-04-01] MEDS: dexAMETHasone 6 MG in SYRINGE 0 ML IV SCH (08:24)
--- NOTE | 2025-04-01 08:24 | Hospitalist Progress Note ---
Date of Service April 01, 2025 Assessment & Plan (1) Closed fracture of transverse process of lumbar vertebra: (2) Hypertension: (3) Fall: (4) Hypothyroidism (acquired): Plan The patient is a 65-year-old female with past medical history including hypertension, hypothyroidism, and migraine headache. The patient presents to the emergency department with complaint of severe left flank and hip pain, after she fell down her basement steps as she was carrying a load of laundry. Imaging in the emergency department including a normal CT of head, CT cervical spine, CT of chest. CT scan of abdomen pelvis revealed a nondisplaced L2 transverse process fracture. Due to intractable pain, patient was referred for evaluation for admission to the [facility] service. #Closed fracture of transverse process of lumbar vertebrae L2 status post fall A/P CT revealed suspected nondisplaced fracture of the left transverse process of L2 Pain regimen as follows: Acetaminophen 650 mg p.o. every 6 hours as needed for mild pain or fever Celebrex 100 mg p.o. twice daily Tramadol 50 mg p.o. every 4 hours as needed moderate pain Dexamethasone 6 mg IV QAM Lidoderm patch QAM Heat application w/ K-Pad PRN Suspect nonoperative, but will touch base with ortho-spine PT/OT evaluations appreciated Fall precautions #Hypertension Continue aspirin, candesartan, hydralazine #Hypothyroidism Continue levothyroxine #Migraine headache Continue rizatriptan as needed Disposition: Continued stay on MedSurg while adjusting pain regimen; PT/OT evaluations pending VTE PPx: SCDs Admission and Anticipated Discharge Date Admission Date: April 01, 2025 [address]ive Mrs. Hairston reports her lower back pain is controlled on her current pain regimen while she is laying still in bed. However, when she gets up to turn or pivot in bed, she does have 10/10 pain in her left lower back. No radiation down the legs, but she has not attempted to stand up since being in the hospital. She does report she had a tailbone injury back in 2008, which is her only prior back injury. However, she also had an incident 3 weeks ago when she fell off her utility trailer, and injured her right hip. ROS: Patient endorses nausea, and left lower back pain with movements. Patient denies fever, chills, night sweats, chest pain, chest palpitations, SOB, vomiting, changes in urinary or bowel habits, burning with induration, saddle anesthesia, or numbness tingling going down the legs. Review of Systems Review of Systems: See HPI above Physical Exam Physical Exam: General: no acute distress; anxious; non-toxic appearing; cooperative; SpO2 96% on RA HEENT: normocephalic, atraumatic; no scleral icterus; PERRLA w/ EOMs intact; vision and hearing grossly intact Neck: supple; no lymphadenopathy; trachea midline Skin: warm, dry without signs of tenting; no cyanosis; no rashes, bruising, lesions, or erythema noted CV: chest wall NTP; RRR; S1/S2 normal; no murmurs/rubs/gallops; pulses intact and symmetric at radial, DP, and PT Lungs: no acute respiratory distress; symmetrical chest wall expansion; clear breath sounds across all lung hall w/o adventitious sounds; no wheezing ABD: Soft, NTP; BS present; no rebound/guarding; no distention Back: Left hip and lower back are NTP; (-) leg lift bilaterally: able to elevate leg approx 45-60 degrees without reproducing LBP MSK: no tics or fasciculations; no edema noted in the LEs b/l, nonerythematous; patient demonstrates ability to wiggle toes, plantarflex, and dorsiflex without unilateral deficits Neuro: A&Ox3; normal mood and affect; fluent speech; no focal deficits; patient reports mildly diminished sensation in the left lower extremity when compared to the right (assessed via light touch) Results & Data Results & Data Vital Signs (Past 12 Hours) Vital Signs Temp Pulse Pulse Resp BP BP BP 04/01/25 07:30 36.3 C L 66 18 143/58 H 04/01/25 03:10 36.3 C L 63 16 127/69 04/01/25 01:30 68 16 132/60 04/01/25 00:30 60 13 134/66 04/01/25 00:26 68 03/31/25 23:33 67 14 03/31/25 23:30 121/57 L 03/31/25 23:27 70 16 121/57 L 03/31/25 22:48 74 17 121/61 03/31/25 22:00 70 18 131/68 03/31/25 21:06 71 21 130/68 03/31/25 20:31 36.6 C 66 18 137/68 Pulse Ox O2 Del Method 04/01/25 07:30 96 Room Air 04/01/25 03:10 97 Room Air 04/01/25 01:30 95 04/01/25 00:30 95 04/01/25 00:26 03/31/25 23:33 97 03/31/25 23:30 03/31/25 23:27 96 Room Air 03/31/25 22:48 96 03/31/25 22:00 97 03/31/25 21:06 96 03/31/25 20:31 99 Room Air PG Care Time/CCT Total # of Minutes Spent Total Time Spent with Patient: Total time spent is greater than 50% in coordination of care (as documented) at patient's floor/unit and/or counseling patient: C[place] [address] SUB INP/OBS CARE 2/35MIN Patient Type Established History Comprehensive Exam Comprehensive Medical Decision Making Moderate Complexity Diagnoses Closed fracture of transverse process of lumbar vertebra S32.009A Encounter type: initial encounter Hypertension I10 Fall W19.XXXA Hypothyroidism (acquired) E03.9 (1) Closed fracture of transverse process of lumbar vertebra Encounter type: initial encounter Qualified Code(s): S32.009A - Unspecified fracture of unspecified lumbar vertebra, initial encounter for closed fracture
[2025-04-01] MEDS: ADVANCED PROBIOTIC 625 MG CAPSULE PO SCH (08:28)
[2025-04-01] MEDS: hydrALAZINE 10 MG TAB PO SCH (08:28)
[2025-04-01] MEDS: LOSARTAN POTASSIUM 50 MG TAB PO SCH (08:28)
[2025-04-01] MEDS: ASPIRIN 81 MG ECTAB PO SCH (08:29)
[2025-04-01] MEDS: ACETAMINOPHEN 500 MG TAB PO SCH (20:24)
[2025-04-01] MEDS: LIDOCAINE 5% 1 PATCH TD SCH (20:25)
[2025-04-02] MEDS: POLYETHYLENE (MIRALAX) 17 GM PACK PO SCH (08:41)
--- NOTE | 2025-04-02 09:58 | Consultation ---
Date of Consultation April 02, 2025 Assessment & Plan (1) Closed fracture of transverse process of lumbar vertebra: Dr. Toscano has reviewed imaging and treatment plan. This is a nonsurgical fracture. Ambulate ad taz. Recommend lifting no greater than 5 to 10 pounds. Do not recommend bracing. She can follow-up in our office in 1 to 2 weeks. Will sign off History of Present Illness Reason for Consultation: L2 transverse process fracture status post fall Attending Physician: Miguel Bahena MD History of Present Illness Is a pleasant 65-year-old female who fell 2 days ago while carrying laundry on her basement steps. She landed on her left side. She was admitted due to poor pain control at home. Allergies Allergy/AdvReac Type Severity Reaction Status Date / Time hydrochlorothiazide AdvReac Intermediate itching Verified 03/30/23 13:32 metronidazole [From Flagyl] AdvReac Intermediate GOT Verified 03/30/23 13:32 SICKER, OPPOSITE EFFECT. Home Medications Medication Instructions Recorded Confirmed Type Lactobacillus rhamnosus GG 10 1 cap PO DAILY 11/24/22 03/31/25 History billion cell capsule (Culturelle) aspirin 81 mg tablet,delayed 81 mg PO DAILY 11/24/22 03/31/25 History release candesartan 32 mg tablet 32 mg PO DAILY 11/24/22 03/31/25 History garlic 1,000 mg capsule 1,000 mg PO DAILY 11/24/22 03/31/25 History hydralazine 10 mg tablet 20 mg PO TID 11/24/22 03/31/25 History levothyroxine 75 mcg tablet 75 mcg PO DAILY 11/24/22 03/31/25 History (Synthroid) rizatriptan 10 mg tablet 10 mg PO DIRECTED PRN Migraine 11/24/22 03/31/25 History Headache Patient History Social History Smoking Status: Never smoker Hx Alcohol Use: No Hx Substance Use: No Preferred Language: Mauritian Communication Ability: Effective Hand Baseball Sewer Required: No Beliefs That Will Affect Care: None Current Living Situation: Spouse Feels Safe at Home: Yes Assistive Devices: None Review of Systems Review of Systems: All systems reviewed & are unremarkable except as noted in HPI & below Physical Exam Physical Exam: She seen in conjunction with her No acute distress Alert and oriented x 3 Strength intact bilateral lower extremities Results & Data Vital Signs (Past 12 Hours) Vital Signs Temp Pulse Resp BP Pulse Ox O2 Del Method 04/02/25 07:09 36.5 C 60 16 133/74 95 Room Air Diagnostic Findings [place], [place] [phone] CT Scan Report Patient: CHANTELL MARTÍNEZ Admit Date: 03/31/25 MR#: [id number] Address1: [place] Acct ID:[id number] Address2: Date: 1960 [facility] Zip: [place] [address] Age: 65 Location: ED Sex: F Room/Bed: Att Phy: Diagnosis: FELL DOWN 3 STEPS, LOWER BACK AND HIP PAIN Marilynn Phy: Peyton Washington,D.O. Service Date: 03/31/25 Fam Phy: Interpreting Phy: Laura Hernandez MDAdmit Phy: Ordering Phy: Nirmala Michaels PA-C cc: ~ Exam(s): CT ABDOMEN + PELVIS With Contrast IV Amt: OPTIRAY 320 93ML EXAM: CT Abdomen and Pelvis With Intravenous Contrast CLINICAL HISTORY: Trauma, severe left flank Pain, fall down steps. TECHNIQUE: Axial computed tomography images of the abdomen and pelvis with intravenous contrast. CTDI is 25.52 mGy and DLP is 1283.56 mGy-cm. Automated exposure control was utilized for the study. A dose lowering technique was utilized adhering to the principles of ALARA. CONTRAST: Patient received OPTIRAY 320 93ML of IV contrast COMPARISON: No relevant prior studies available. FINDINGS: Lung bases: Unremarkable. No mass. No consolidation. Mediastinum: Small hiatal hernia. ABDOMEN: Liver: Unremarkable. No mass. Gallbladder and bile ducts: Cholecystectomy. No ductal dilation. Pancreas: Unremarkable. No mass. No ductal dilation. Spleen: Unremarkable. No splenomegaly. Adrenals: Unremarkable. No mass. Kidneys and ureters: Unremarkable. No solid mass. No hydronephrosis. Stomach and bowel: Diverticulosis. No obstruction. No mucosal thickening. PELVIS: Appendix: Normal appendix. Bladder: Unremarkable. No mass. Reproductive: Unremarkable as visualized. ABDOMEN and PELVIS: Intraperitoneal space: Unremarkable. No free air. No significant fluid collection. Bones/joints: Suspect nondisplaced fracture of the left transverse process of L2. No dislocation. No other fracture. Soft tissues: Unremarkable. Vasculature: Mild atherosclerosis. No aneurysm. Lymph nodes: Unremarkable. No enlarged lymph nodes. IMPRESSION: 1. Suspect nondisplaced fracture of the left transverse process of L2. Otherwise, no acute finding. 2. Small hiatal hernia. 3. Diverticulosis. Electronically signed by: Laura Hernandez MD 03/31/25 23:36 PM Dictated: 03/31/25 233 Transcribed: 03/31/25 233 (1) Closed fracture of transverse process of lumbar vertebra Encounter type: initial encounter Qualified Code(s): S32.009A - Unspecified fracture of unspecified lumbar vertebra, initial encounter for closed fracture
[2025-04-02] MEDS: REMOVE LIDODERM PATCH SCH (11:48)
--- NOTE | 2025-04-02 12:09 | Discharge Summary ---
Discharge Summary Date of Service April 02, 2025 Principal Dx & Hospital Course #1 = Principal Diagnosis (1) Closed fracture of transverse process of lumbar vertebra: (2) Hypertension: (3) Fall: (4) Hypothyroidism (acquired): Plan The patient is a 65-year-old female with past medical history including hypertension, hypothyroidism, and migraine headache. The patient presents to the emergency department with complaint of severe left flank and hip pain, after she fell down her basement steps as she was carrying a load of laundry. Imaging in the emergency department including a normal CT of head, CT cervical spine, CT of chest. CT scan of abdomen pelvis revealed a nondisplaced L2 transverse process fracture. Due to intractable pain, [facility] Day of discharge 04/02/2025: VSHugo Hairston is happy to report she is doing much better today compared to yesterday. She slept well last night, and has been working with PT/OT this morning. She rates the pain in her left lower back as a 4 out of 10, that is exacerbated by occasional movements. No radiation down the legs. Her current pain regimen is working for her. She feels like she did well getting up from the bed into the chair today, and she has been practicing her leg rolls in bed. She also is happy to report that she was able to ambulate around the hallways into her lap with PT independently (no walker or cane used). She feels that her lidocaine patch has been helping. She is eager to return home today if possible. ROS: Patient endorses left lower back pain that is exacerbated by certain movements. Patient denies fever, chills, night sweats, chest pain, SOB, cough, pleuritic CP, abdominal pain, N/V/D, changes in urinary bowel habits, or numbness or tingling going down the legs. #Closed fracture of transverse process of lumbar vertebrae L2 status post fall A/P CT revealed suspected nondisplaced fracture of the left transverse process of L2 Pain regimen while in the hospital: Acetaminophen 650 mg p.o. every 6 hours as needed for mild pain or fever Celebrex 100 mg p.o. twice daily Tramadol 50 mg p.o. every 4 hours as needed moderate pain Dexamethasone 6 mg IV QAM Lidoderm patch QAM Heat application w/ K-Pad PRN Seen by orthospine on the hospital; nonoperative, no brace required PT/OT evaluations appreciated Per PT eval, recommended using straight cane for improved safety while recovering Per OT eval, patient able to function safely with basic ADLs and mobility Patient has been declined home OT, as they feel comfortable with the information provided during evaluation Safe to return home with family support Will plan to discharge patient on Celebrex 100 mg p.o. BID PRN + lidocaine pa tches #Hypertension Continue aspirin, candesartan, hydralazine #Hypothyroidism Continue levothyroxine #Migraine headache Continue rizatriptan as needed Disposition: Discharge home Notes For Next Care Provider Patient was hospitalized from 04/01 - 04/02 after sustaining a fall down her basement steps at home. She was found to have a transverse L2 fracture on imaging. Nonoperative. No brace required. Discharged on Celebrex 100 mg p.o. twice daily PRN for pain, as well as lidocaine patches. Patient will require follow-up with ortho-spine in the next 1 to 2 weeks upon discharge. Admission HPI Per Admitting Provider The patient is a 65-year-old female with past medical history including hypertension, hypothyroidism, and migraine headache. The patient presents to the emergency department with complaint of severe left flank and hip pain, after she fell down her basement steps as she was carrying a load of laundry. Imaging in the emergency department including a normal CT of head, CT cervical spine, CT of chest. CT scan of abdomen pelvis revealed a nondisplaced L2 transverse process fracture. Due to intractable pain, [facility] Admission Exam Per Admitting Provider The patient is awake, alert and oriented 3, well developed and well nourished, normocephalic and atraumatic, lying in bed and in no acute distress. HEENT--PERRL, EOMI, mucous membranes and oropharynx mildly dry Neck--supple. No JVD. No bruits. Thyroid normal, trachea midline, no adenopathy. Heart--normal S1 and S2. No murmurs, rubs or gallops. Lungs--clear bilaterally, no respiratory distress, no accessory muscle use. Abdomen--normal bowel sounds and soft. Nontender. Nondistended, no hernias or masses, no organomegaly. Extremities--no cyanosis or clubbing. No edema. There are good distal pulses b/l. Dermatologic--normal skin turgor, normal color, no abnormal lymph nodes, no rash. Neurologic--cranial nerves II through XII grossly intact. Rheumatologic--mild to moderate pain reproducible over L2 Psychiatric--normal affect. Discharge Exam General: no acute distress; pleasant affect; sitting upright in her chair; at bedside; non-toxic appearing; well-nourished; cooperative; SpO2 95% on RA HEENT: normocephalic, atraumatic; vision and hearing are grossly intact Neck: supple; trachea midline Skin: warm, dry without signs of tenting; no cyanosis; no rashes, bruising, les ions, or erythema noted CV: chest wall NTP; RRR; S1/S2 normal; no murmurs/rubs/gallops; pulses intact and symmetric at radial, DP, and PT Lungs: no acute respiratory distress; symmetrical chest wall expansion; clear breath sounds across all lung hall w/o adventitious sounds; no wheezing ABD: Soft, NTP; BS present; no rebound/guarding; no distention Back: Upper spine NTP; lower spine exhibits point tenderness in the left lower back; lidocaine patch in place MSK: no tics or fasciculations; no edema noted in the LEs b/l, nonerythematous; patient demonstrates ability to wiggle her toes, plantarflex, dorsiflex bilaterally with 5/5 strength Neuro: A&Ox3; normal mood and affect; fluent speech; no focal deficits; sensation intact and symmetric in lower extremities bilaterally assessed via light touch Discharge Plan Discharge Items Patient Disposition: Home - Self-Care Reason For Visit: L2 TRANSVERSE PROCESS FRACTURE Discharge Diagnosis: L2 transverse process fracture Condition on Discharge: Good Activity: As commented below Activity Comment: Gradually increase activity as tolerated over the next 3 to 4 weeks Lifting: No more than 10 pounds Non-emergency contact: Primary Care Provider Call non-emergency contact if: you have any medication questions, your symptoms worsen, your pain is not controlled, your pain is worsening and you have a fever Follow-up/Referrals: Peyton Washington DO [Primary Care Provider] - Diet: Regular Addtl Attending Provider Instructions: You were hospitalized at [facility] from 04/01 - 8/26 after sustaining a fall down your basement steps at home. On arrival, imaging of your back revealed a nondisplaced fracture of the left transverse process of L2. This is a fracture in your lumbar spine. We reached out to our orthopedic spine team, believe that this is a nonoperative fracture, and does not require a brace or surgery. Fractures of this nature tend to take 4-6 weeks, or sometimes longer to heal. Our physical therapy team recommends that you use a straight cane for improved safety while recovering. Transverse fractures can be treated at home with rest and pain medicine as needed for swelling. It is recommended that you take Tylenol 500 mg tablets every 4 hours as needed for the pain (scale 1-6); please do not exceed 3000 mg of Tylenol daily. Additionally, it is recommended that you apply lidocaine patches to your lower back. Please apply this patch in the morning and remove it at night (do not leave on for more than 24 hours). We will also plan to send you home on a prescription for Celebrex 100 mg tablets which can be taken twice daily (as needed) for pain not alleviated by Tylenol and lidocaine patches. It is recommended that you avoid strenuous activity, and gradually increase activity as tolerated over the next 3 to 4 weeks. Do not lift any more than 10 pounds at home. Our block and case maker will work to set you up with a follow-up a ppointment with our orthopedic spine team; please be on the look out for the correspondence. Please plan to follow-up with your PCP in the next 7 to 10 days for a transitional care appointment. If you develop any new or worsening symptoms, such as intractable back pain, numbness or tingling in the groin region, numbness tingling going down the legs, severe pain shooting down the legs, difficulty walking, fever, chills, chest pain, or trouble breathing, please return to the emergency department immediately. It was a pleasure taking care of you. Please reach out with any questions or concerns. Sincerely, The Hospital medicine team at [facility] Pending Studies at Discharge: No Stand-Alone Forms: My [facility] Medications and DC Order Prescriptions: New lidocaine 5 % adhesive patch,medicated 1 patch topical DAILY Qty: 15 0RF Rx Instructions: leave on most painful area for up to 12 hrs celecoxib 100 mg capsule 100 mg PO BID PRN (Reason: pain (scale score 7-10)) Qty: 20 0RF Rx Instructions: Take 1 capsule by mouth twice daily as needed for pain Continued hydralazine 10 mg tablet 20 mg PO TID rizatriptan 10 mg Tablet 10 mg PO DIRECTED PRN (Reason: Migraine Headache) Rx Instructions: take 1 tab at onset of headache; if no relief may repeat 1 tab after at least 2 hrs; max = 3 tabs/24 hr aspirin 81 mg Tablet,Delayed Release (Dr/Ec) 81 mg PO DAILY levothyroxine [Synthroid] 75 mcg tablet 75 mcg PO DAILY garlic 1,000 mg Capsule 1,000 mg PO DAILY candesartan 32 mg tablet 32 mg PO DAILY Culturelle 10 billion cell Capsule 1 cap PO DAILY Discharge Orders: Discharge Order (Routine); Ordered 04/02/25 Ordered By: Jerry Fuentes/Other Patient Handouts: ED Transverse Process Fracture Admission Data Admit Date/Time: 04/01/25 00:55 Attending Provider: Miguel Bahena Admit Provider: Christiano Olivera Primary Care Provider: Peyton Washington Other Providers: Christiano Olivera Hospital Stay Data Consultations 04/01/25 00:11 ED Decision to Admit Stat Diagnostic Imagining Performed 03/31/25 21:48 CT abd pelvis IV con only Stat CT cervical spine wo con Stat CT chest diagnostic w con Stat CT head/brain wo con Stat Pending Results Patient Have Any Pending Studies at Discharge: No Discharge Instructions Given to Patient (Per Discharging Provider) You were hospitalized at [facility] from 04/01 - 04/02 after sustaining a fall down your basement steps at home. On arrival, imaging of your back revealed a nondisplaced fracture of the left transverse process of L2. This is a fracture in your lumbar spine. We reached out to our orthopedic spine team, believe that this is a nonoperative fracture, and does not require a brace or surgery. Fractures of this nature tend to take 4-6 weeks, or sometimes longer to heal. Our physical therapy team recommends that you use a straight cane for improved safety while recovering. Transverse fractures can be treated at home with rest and pain medicine as needed for swelling. It is recommended that you take Tylenol 500 mg tablets every 4 hours as needed for the pain (scale 1-6); please do not exceed 3000 mg of Tylenol daily. Additionally, it is recommended that you apply lidocaine patches to your lower back. Please apply this patch in the morning and remove it at night (do not leave on for more than 24 hours). We will also plan to send you home on a prescription for Celebrex 100 mg tablets which can be taken twice daily (as needed) for pain not alleviated by Tylenol and lidocaine patches. It is recommended that you avoid strenuous activity, and gradually increase activity as tolerated over the next 3 to 4 weeks. Do not lift any more than 10 pounds at home. Our block and case maker will work to set you up with a follow-up appointment with our orthopedic spine team; please be on the look out for the correspondence. Please plan to follow-up with your PCP in the next 7 to 10 days for a transitional care appointment. If you develop any new or worsening symptoms, such as intractable back pain, numbness or tingling in the groin region, numbness tingling going down the legs, severe pain shooting down the legs, difficulty walking, fever, chills, chest pain, or trouble breathing, please return to the emergency department immediately. It was a pleasure taking care of you. Please reach out with any questions or concerns. Sincerely, The Hospital medicine team at [facility] Total Time Total Time Spent Total Time Spent (In Minutes): 25 Coding [place] [address] IN/OBS DISCH 30 MIN/LESS Patient Type Established History Comprehensive Exam Comprehensive Medical Decision Making Moderate Complexity Diagnoses Closed fracture of transverse process of lumbar vertebra S32.009A Encounter type: initial encounter Hypertension I10 Fall W19.XXXA Hypothyroidism (acquired) E03.9
== END 2025-04-02 17:38 | disposition home or self-care (01) ==
LOC: ED 20:16 → 3N 20:16 → SUATTDRO 04-01 00:55 → 3N 04-01 02:26